=== PATIENT | female | born 1985 | race Caucasian/White ===

== ENCOUNTER 2016-09-14 21:52 | Emergency (ER) | payer OTHER ==
[~2016-09-14] VITALS: Ht 157.5 cm; Wt 49.0 kg
[~2016-09-14 21:52] MED LIST: CYCL1TAB29 PO; FLUT1SPR9; NAPR500 PO; RANI150 PO
[2016-09-14 21:54] VITALS: BP 112/57; PULSE 97; RESP 16; TEMP 97.8; O2SAT 96
[2016-09-14] MEDS ORDERED: BACT800T5 PO (22:18)
[2016-09-14] MEDS ORDERED: CEPH-460 PO (22:18)
--- NOTE | 2016-09-14 22:21 | PD ---
HPI Chief Complaint: Skin Problem Time Seen by Provider: 22:10 Travel History International Travel<30 days: No Contact w/Intl Traveler<30days: No Traveled to known affect area: No History of Present Illness HPI This is a 31-year-old female presents for evaluation of a skin infection on the posterior aspect of the right thigh. She first noticed an area of redness and tenderness 4 days ago. The area has gradually enlarged which prompted evaluation. The area is tender, aching, worse with palpation or sitting. Interventions that she has tried his home include warm compresses. Denies fevers or chills. Denies IV drug use. Denies any immunocompromising diseases. She has no other complaints at this time. [facility] Past Medical History Anxiety: Yes Diminished Hearing: No GERD: Yes Immunizations Current: No ?: Not LMP: 08/29/16 : 1 Para: 1 Miscarriage: 1 Past Surgical History Abdominal Surgery: Yes (C SECTION) Section: Yes (X 1) Social History Alcohol Use: Yes Tobacco Use: Yes (09/09 PPD) Substance Use: Yes (MARIJUANA EVERY DAY) Allergies-Medications (Allergen,Severity, Reaction): Coded Allergies: No Known Allergies (Verified , 09/14/16) Reported Meds & Prescriptions Reported Meds & Active Scripts Active No Active Prescriptions or Reported Medications Review of Systems Except as stated in HPI: all other systems reviewed are Neg Physical Exam Narrative GENERAL: Well-developed well-nourished female in no acute distress SKIN: Warm and dry. On the posterior aspect of the right thigh there is a 5-6 cm in diameter area of mild erythema. There is central induration, excoriation without fluctuance, drainage. CARDIOVASCULAR: Regular rate and rhythm. No murmur appreciated. RESPIRATORY: No accessory muscle use. Clear to auscultation. Breath sounds equal bilaterally. Data Data Last Documented VS Vital Signs Date Time Temp Pulse Resp B/P Pulse Ox O2 Delivery O2 Flow Rate FiO2 09/14/16 21:54 97.8 97 16 112/57 96 Room Air Orders Sulfamet-Trimeth Ds 800-160 Mg (Bactrim (09/14/16 22:30) Cephalexin (Keflex) (09/14/16 22:30) MDM Medical Decision Making Medical Screen Exam Complete: Yes Emergency Medical Condition: Yes Medical Record Reviewed: Yes Differential Diagnosis Cellulitis, localized allergic reaction, abscess, erysipelas Narrative Course 31-year-old female with cellulitis in the posterior right thigh. Symptoms are currently mild and will be treated as an outpatient. She understands to return for evidence of worsening infection such as increasing redness, swelling, fevers. She is being given Bactrim and Keflex, first dose here. Diagnosis Primary Impression: Cellulitis of right leg Additional Instructions: Medication as prescribed. Warm compresses several times a day 10 minutes at a time. Follow-up with primary care physician as needed. Return for any new or worsening symptoms. Med/Other Pt SpecificInfo: Prescription(s) given Scripts Cephalexin (Keflex)500 Mg Nub305 Mg PO Q6H 10 Days Ref 0 Prov:Karol Sandhu MD 09/14/16 Sulfamethoxazole-Trimethoprim (Bactrim DS)800-160 Mg Tab1 Tab PO BID #20 TAB Ref 0 Prov:Karol Sandhu MD 09/14/16 Disposition: 01 DISCHARGE HOME Condition: Stable Sandeep Xavier Sep 14, 2016 22:21
[2016-09-14] MEDS ORDERED: SULFAMETHOXAZOLE-TRIMETHOPRIM DS 800-160 MG TAB PO ONE (22:30)
[2016-09-14] MEDS ORDERED: CEPHALEXIN MONOHYDRATE 500 MG CAP PO ONE (22:30)
== END 2016-09-14 23:38 | disposition home or self-care (01) ==
LOC: NEPB 21:52
DX: L03.115 Cellulitis of right lower limb (principal); F17.210 Nicotine dependence, cigarettes, uncomplicated; F12.90 Cannabis use, unspecified, uncomplicated
CPT/HCPCS: 99282

== ENCOUNTER 2016-09-17 21:41 | Inpatient (IN) | payer OTHER ==
[~2016-09-17] VITALS: Ht 160 cm; Wt 49.6 kg
[~2016-09-17 21:41] MED LIST changes: +BACT800T5 PO; +CEPH-460 PO; -CYCL1TAB29 PO; -FLUT1SPR9; -NAPR500 PO; -RANI150 PO
[2016-09-17 21:45] VITALS: BP 108/64; PULSE 112; RESP 16; TEMP 99; O2SAT 98
[2016-09-17] MEDS ORDERED: VANCOMYCIN INJ 1,000 MG in SODIUM CHLOR 0.9% 250 ML INJ 250 ML IV ONE (22:30)
[2016-09-17] MEDS ORDERED: MORPHINE SULFATE 4 MG/ML INJ IV PUSH ONE (22:30)
[2016-09-17] MEDS ORDERED: SODIUM CHLOR 0.9% 1000 ML INJ 1,000 ML IV ONE (22:30)
[2016-09-17] MEDS ORDERED: AMPICILLIN-SULBACTAM INJ 1,500 MG in SODIUM CHLORIDE 0.9% INJ 100 ML IV ONE (22:45)
[2016-09-17 22:48] LABS: AUTOMATED NEUTROPHIL # 6.6 TH/MM3 (1.8-7.7); BASOPHIL # 0.6 TH/MM3 (0-0.2); BASOPHIL % 4.6 % (0.0-2.0); EOSINOPHIL # 1.7 TH/MM3 (0-0.4); EOSINOPHIL % 13.1 % (0.0-4.0); HEMATOCRIT 35.8 % (35.0-46.0); LYMPH % 21.4 % (9.0-44.0); LYMPHOCYTE # 2.8 TH/MM3 (1.0-4.8); MEAN CELL VOLUME 89.6 FL (80.0-100.0); MEAN CORPUSCULAR HEMOGLOBIN 29.9 PG (27.0-34.0); MEAN CORPUSCULAR HGB CONC 33.3 % (32.0-36.0); NEUT % 51.9 % (16.0-70.0); PLATELET COUNT 301 TH/MM3 (150-450); RED BLOOD COUNT 3.99 MIL/MM3 (4.00-5.30); RED CELL DISTRIBUTION WIDTH 12.5 % (11.6-17.2); WHITE BLOOD COUNT 12.9 TH/MM3 (4.0-11.0)
[2016-09-17] MEDS ORDERED: IOHEXOL 300 MG/ML 100 ML BTL (for Rad CT) IV ONE (22:52)
[2016-09-17 22:53] LABS: HEMO FLAGS DIFF FINAL
--- NOTE | 2016-09-17 23:07 | PD ---
HPI Chief Complaint: Skin Problem Time Seen by Provider: 21:57 Travel History International Travel<30 days: No Contact w/Intl Traveler<30days: No Traveled to known affect area: No History of Present Illness HPI Patient is a 31-year-old female who comes in complaining of pain and swelling to her right leg. She was seen here in September 14 was diagnosed with cellulitis , and discharged with prescriptions for Keflex and Bactrim. She has been taking the medications since that visit, but feels that the area of cellulitis seems to be getting worse. She said it started about a week ago with what she thought was a boil. She says she believes she had some sort insect bite while she was sleeping. She says that day the boil opened and drained, and she thought it would go away. However she has had increased pain and redness to the area. She denies fevers, but says she has generally been feeling more tired and unwell. PFSH Past Medical History Anxiety: Yes Diminished Hearing: No GERD: Yes Immunizations Current: No Tetanus Vaccination: < 5 Years Influenza Vaccination: No ?: Not LMP: 2-3 weeks ago : 1 Para: 1 Miscarriage: 1 Past Surgical History Abdominal Surgery: Yes (C SECTION) Section: Yes (X 1) Social History Alcohol Use: Yes Tobacco Use: Yes (1/2 PPD) Substance Use: Yes (MARIJUANA EVERY DAY) Allergies-Medications (Allergen,Severity, Reaction): Coded Allergies: No Known Allergies (Verified , 09/17/16) Reported Meds & Prescriptions Reported Meds & Active Scripts Active Keflex (Cephalexin) 500 Mg Cap 500 Mg PO Q6H 10 Days Bactrim DS (Sulfamethoxazole-Trimethoprim) 800-160 Mg Tab 1 Tab PO BID Review of Systems Except as stated in HPI: all other systems reviewed are Neg General / Constitutional: No: Fever HENT: No: Headaches, Lightheadedness Cardiovascular: No: Chest Pain or Discomfort Respiratory: No: Shortness of Breath Gastrointestinal: No: Nausea, Vomiting Musculoskeletal: Positive: Edema, Pain Skin: Positive Change in Pigmentation, Positive Lesions Neurologic: No: Weakness, Dizziness Physical Exam Narrative GENERAL: Awake and alert in no acute distress. SKIN: Warm and dry. 10 cm area of erythema and warmth to the posterior right thigh. Area of induration in the middle, no fluctuance palpated. HEAD: Atraumatic. Normocephalic. EYES: Pupils equal and round. No scleral icterus. ENT: Mucous membranes pink and moist. NECK: Trachea midline. No JVD. CARDIOVASCULAR: Regular rate and rhythm. No murmur appreciated. RESPIRATORY: No accessory muscle use. Clear to auscultation. Breath sounds equal bilaterally. MUSCULOSKELETAL: No obvious deformities. No clubbing. No cyanosis. No edema. NEUROLOGICAL: Awake and alert. No obvious cranial nerve deficits. Motor grossly within normal limits. Normal speech. PSYCHIATRIC: Appropriate mood and affect; insight and judgment normal. Data Data Last Documented VS Vital Signs Date Time Temp Pulse Resp B/P Pulse Ox O2 Delivery O2 Flow Rate FiO2 09/17/16 22:23 20 09/17/16 21:45 99.0 112 108/64 98 Orders Complete Blood Count With Diff (09/17/16 22:22) Comprehensive Metabolic Panel (09/17/16 22:22) Lactic Acid (09/17/16 22:22) Ct Femur W Iv Contrast (09/17/16 ) Vancomycin Inj (Vancomycin Inj) (09/17/16 22:30) Sodium Chlor 0.9% 1000 Ml Inj (Ns 1000 M (09/17/16 22:30) Morphine Inj (Morphine Inj) (09/17/16 22:30) Ampicillin-Sulbactam Inj (Unasyn Inj) (09/17/16 22:45) Iohexol 300 Inj (Rad Ct) (Omnipaque 300 (09/17/16 22:52) Labs Laboratory Tests Test 09/17/16 22:40 White Blood Count 12.9 TH/MM3 Red Blood Count 3.99 MIL/MM3 Hemoglobin 11.9 GM/DL Hematocrit 35.8 % Mean Corpuscular Volume 89.6 FL Mean Corpuscular Hemoglobin 29.9 PG Mean Corpuscular Hemoglobin 33.3 % Concent Red Cell Distribution Width 12.5 % Platelet Count 301 TH/MM3 Mean Platelet Volume 7.0 FL Neutrophils (%) (Auto) 51.9 % Lymphocytes (%) (Auto) 21.4 % Monocytes (%) (Auto) 9.0 % Eosinophils (%) (Auto) 13.1 % Basophils (%) (Auto) 4.6 % Neutrophils # (Auto) 6.6 TH/MM3 Lymphocytes # (Auto) 2.8 TH/MM3 Monocytes # (Auto) 1.2 TH/MM3 Eosinophils # (Auto) 1.7 TH/MM3 Basophils # (Auto) 0.6 TH/MM3 CBC Comment DIFF FINAL Differential Comment Sodium Level 137 MEQ/L Potassium Level 3.8 MEQ/L Chloride Level 103 MEQ/L Carbon Dioxide Level 26.2 MEQ/L Anion Gap 8 MEQ/L Blood Urea Nitrogen 13 MG/DL Creatinine 0.86 MG/DL Estimat Glomerular Filtration 76 ML/MIN Rate Random Glucose 97 MG/DL Lactic Acid Level 1.4 mmol/L Calcium Level 8.2 MG/DL Total Bilirubin 0.2 MG/DL Aspartate Amino Transf 12 U/L (AST/SGOT) Alanine Aminotransferase 9 U/L (ALT/SGPT) Alkaline Phosphatase 67 U/L Total Protein 7.8 GM/DL Albumin 3.1 GM/DL [facility] Medical Decision Making Medical Screen Exam Complete: Yes Emergency Medical Condition: Yes Medical Record Reviewed: Yes Differential Diagnosis Cellulitis versus abscess versus neckties and fasciitis versus brown recluse bite Narrative Course Patient is a 31-year-old female who comes in complaining of worsening area of redness and pain to her right leg. Exam shows large area of erythema and warmth with induration at the center. Patient has been on Keflex and Bactrim, but her symptoms seem to be worsening. IV established, labs sent. Labs concerning for a white blood cell count of 12.9. Patient given vancomycin and Unasyn. Given morphine for pain. CT of the leg performed show cellulitis, no defined abscess, no evidence of necrotizing fasciitis. Patient seems to have gotten worse while on antibiotics by mouth. I believe she would benefit from admission for IV antibiotics. Diagnosis Primary Impression: Cellulitis of right leg Admitting Information Admitting Physician Requests: Admit Condition: Stable Debbie Shepherd MD Sep 17, 2016 23:07
[2016-09-17 23:09] LABS: CHLORIDE 103 MEQ/L (98-107); POTASSIUM 3.8 MEQ/L (3.5-5.1); SODIUM (NA) 137 MEQ/L (136-145)
[2016-09-17 23:13] LABS: ANION GAP 8 MEQ/L (5-15); BICARBONATE 26.2 MEQ/L (21.0-32.0); BLOOD UREA NITROGEN 13 MG/DL (7-18)
--- NOTE | 2016-09-17 23:14 | RADHPO ---
EXAM DATE/TIME: 09/17/2016 22:44 [facility] COMPARISON: No previous studies available for comparison. INDICATIONS : Cellulitis. Evaluate for necrotizing fascitis. IV CONTRAST: 100 cc Omnipaque 300 (iohexol) IV RADIATION DOSE: 13.44 CTDIvol (mGy) MEDICAL HISTORY : None SURGICAL HISTORY : section. ENCOUNTER: Initial ACUITY: 4 - 6 days PAIN SCALE: 8/10 LOCATION: Right posterior femur. TECHNIQUE: Volumetric scanning of the femur was performed. Using automated exposure control and adjustment of t he mA and/or kV according to patient size, radiation dose was kept as low as reasonably achievable to obtain optimal diagnostic quality images. FINDINGS: BONES: No evidence of fracture. Alignment is within normal limits. JOINTS: No evidence of joint narrowing or effusion. SOFT TISSUES: Muscles, tendons and neurovascular structures unremarkable. No evidence of mass, organized fluid nicolette ection, or foreign body. There is some induration of the soft tissues of the posterior thigh laterall y consistent with cellulitis. No abscess. No emphysema to suggest necrotizing fasciitis. CONCLUSION: 1. Minimal cellulitic changes of the posterior lateral right thigh. 2. No emphysema to suggest necrotizing fasciitis. Naresh Bird MD on September 17, 2016 at 23:09 Board Certified Radiologist. This report was verified electronically.
[2016-09-17 23:16] LABS: ALT (GPT) 9 U/L (10-53); AST (GOT) 12 U/L (15-37); GLOMERULAR FILTRATION RATE 76 ML/MIN (>89)
[2016-09-17 23:18] LABS: TOTAL BILIRUBIN ADULT 0.2 MG/DL (0.2-1.0)
[2016-09-17 23:19] LABS: ALKALINE PHOSPHATASE 67 U/L (45-117)
[2016-09-17 23:24] VITALS: BP 100/53; PULSE 78; RESP 16; TEMP 98.4; O2SAT 97
[2016-09-17] MEDS ORDERED: SODIUM CHLORIDE 0.9% FLUSH 5 ML FLUSH FLUSH PRN (23:30)
[2016-09-17] MEDS ORDERED: NALOXONE HCL 0.4 MG/ML AMP IV PRN (23:30)
[2016-09-17] MEDS ORDERED: Vancomycin Consult Pharmacy 1 EA OTHER SCH (23:30)
[2016-09-18] VITALS (9 sets, daily range): BP systolic 93–108; BP diastolic 48–67; PULSE 65–81; RESP 17–20; TEMP 95.5–98.2; O2SAT 96–100
[2016-09-18] MEDS ORDERED: diphenhydrAMINE HCL 50 MG/ML VIAL IV PUSH ONE (01:45)
[2016-09-18] MEDS: KETOROLAC TROMETHAMINE 30 MG/ML (IVP) VIAL IV PUSH PRN ×3 (03:58→20:14)
[2016-09-18] MEDS ORDERED: diphenhydrAMINE HCL 25 MG CAP PO ONE (04:00)
[2016-09-18] MEDS ORDERED: PIPERACIL-TAZO 4.5 GM PREMIX 100 ML IV SCH (06:00)
[2016-09-18 06:23] LABS: AUTOMATED NEUTROPHIL # 5.3 TH/MM3 (1.8-7.7); BASOPHIL % 0.4 % (0.0-2.0); EOSINOPHIL # 1.3 TH/MM3 (0-0.4); EOSINOPHIL % 12.1 % (0.0-4.0); HEMO FLAGS DIFF FINAL; MEAN CELL VOLUME 88.8 FL (80.0-100.0); MEAN CORPUSCULAR HEMOGLOBIN 29.1 PG (27.0-34.0); MEAN CORPUSCULAR HGB CONC 32.8 % (32.0-36.0); MONO % 10.6 % (0.0-8.0); NEUT % 48.9 % (16.0-70.0); PLATELET COUNT 279 TH/MM3 (150-450); RED BLOOD COUNT 3.83 MIL/MM3 (4.00-5.30); RED CELL DISTRIBUTION WIDTH 12.3 % (11.6-17.2); WHITE BLOOD COUNT 10.7 TH/MM3 (4.0-11.0)
[2016-09-18 06:37] LABS: BICARBONATE 25.2 MEQ/L (21.0-32.0)
[2016-09-18] MEDS: SODIUM CHLORIDE 0.9% FLUSH 5 ML FLUSH FLUSH SCH ×2 (10:18→20:13)
--- NOTE | 2016-09-18 11:54 | HHI.HP ---
[facility] No Primary Care Physician Admission Diagnosis Cellulitis Diagnoses: Chief Complaint: Right thigh pain Travel History International Travel<30 Days: No Contact w/Intl Traveler <30 Da: No Traveled to Known Affected Are: No History of Present Illness Patient is a 31-year-old female with no chronic medical problems of did have increased redness and tenderness in the right thigh since 09/10/2016. She thinks that bug bit her. The patient did come to the emergency room for evaluation was given oral antibiotics which she took but noted that the pain became increased and the erythema and swelling became increased and she came back to the hospital. She does not IV drug use and any illicit behaviors. Patient has been admitted to the hospital due to failed outpatient therapy. She does have some leukocytosis and evidence of severe cellulitis on her right thigh. Review of Systems Constitutional: DENIES: Diaphoretic episodes, Fatigue, Fever, Weight gain, Weight loss, Chills, Dizziness, Change in appetite, Night Sweats Endocrine: DENIES: Abnorml menstrual pattern, Heat/cold intolerance, Polydipsia , Polyuria, Polyphagia Eyes: DENIES: Blurred vision, Diplopia, Eye inflammation, Eye pain, Vision loss , Photosensitivity, Double Vision Ears, nose, mouth, throat: DENIES: Tinnitus, Hearing loss, Vertigo, Nasal discharge, Oral lesions, Throat pain, Hoarseness, Ear Pain, Running Nose, Epistaxis, Sinus Pain, Toothache, Odynophagia Respiratory: DENIES: Apneas, Cough, Snoring, Wheezing, Hemoptysis, Sputum production, Shortness of breath Cardiovascular: DENIES: Chest pain, Palpitations, Syncope, Dyspnea on Exertion , PND, Lower Extremity Edema, Orthopnea, Claudication Gastrointestinal: DENIES: Abdominal pain, Black stools, Bloody stools, Constipation, Diarrhea, Nausea, Vomiting, Difficulty Swallowing, Anorexia Genitourinary: DENIES: Abnormal vaginal bleeding, Dysmenorrhea, Dyspareunia, Sexual dysfunction, Urinary frequency, Urinary incontinence, Urgency, Hematuria , Dysuria, Nocturia, Vaginal discharge Musculoskeletal: DENIES: Joint pain, Muscle aches, Stiffness, Joint Swelling, Back pain, Neck pain Integumentary: DENIES: Abnormal pigmentation, Pruritus, Rash, Nail changes, Breast masses, Breast skin changes, Nipple discharge Hematologic/lymphatic: DENIES: Bruising, Lymphadenopathy Immunologic/allergic: DENIES: Eczema, Urticaria Neurologic: DENIES: Abnormal gait, Headache, Localized weakness, Paresthesias, Seizures, Speech Problems, Tremor, Poor Balance Psychiatric: DENIES: Anxiety, Confusion, Mood changes, Depression, Hallucinations, Agitation, Suicidal Ideation, Homicidal Ideation, Delusions Past Family Social History Past Medical History Denies Past Surgical History Reported Medications Reviewed medical record Allergies: Coded Allergies: No Known Allergies (Verified , 09/17/16) Active Ordered Medications Reviewed and the medical record Family History Family history of COPD the patient is estranged from her family Social History Patient smokes a half pack a day, no alcohol Physical Exam Vital Signs Vital Signs Date Time Temp Pulse Resp B/P Pulse Ox O2 Delivery O2 Flow Rate FiO2 09/18/16 08:10 96.3 70 18 93/60 99 09/18/16 07:48 98.2 85 14 93/54 100 09/18/16 06:15 97.7 65 18 102/55 98 Room Air 09/18/16 03:34 78 20 102/50 100 09/18/16 01:45 77 18 101/50 99 Room Air 09/18/16 00:30 97.6 70 18 108/48 98 Room Air 09/17/16 23:45 18 09/17/16 23:39 18 09/17/16 23:24 98.4 78 16 100/53 97 Room Air 09/17/16 22:23 20 09/17/16 21:45 99.0 112 16 108/64 98 Physical Exam GENERAL: This is a well-nourished, well-developed patient, in no apparent distress. SKIN: Right thigh has erythema surrounding a central area of pus and minimal necrosis, tender HEAD: Atraumatic. Normocephalic. No temporal or scalp tenderness. EYES: Pupils equal round and reactive. Extraocular motions intact. No scleral icterus. No injection or drainage. ENT: Nose without bleeding, purulent drainage or septal hematoma. Throat without erythema, tonsillar hypertrophy or exudate. Uvula midline. Airway patent. NECK: Trachea midline. No JVD or lymphadenopathy. Supple, nontender, no meningeal signs. CARDIOVASCULAR: Regular rate and rhythm without murmurs, gallops, or rubs. RESPIRATORY: Clear to auscultation. Breath sounds equal bilaterally. No wheezes , rales, or rhonchi. GASTROINTESTINAL: Abdomen soft, non-tender, nondistended. No hepato-splenomegaly , or palpable masses. No guarding. MUSCULOSKELETAL: Extremities without clubbing, cyanosis, or edema. No joint tenderness, effusion, or edema noted. No calf tenderness. Negative Homans sign bilaterally. NEUROLOGICAL: Awake and alert. Cranial nerves II through XII intact. Motor and sensory grossly within normal limits. Five out of 5 muscle strength in all muscle groups. Normal speech. Laboratory Laboratory Tests Test 09/17/16 09/18/16 22:40 06:10 White Blood Count 12.9 10.7 Red Blood Count 3.99 3.83 Hemoglobin 11.9 11.2 Hematocrit 35.8 34.0 Mean Corpuscular Volume 89.6 88.8 Mean Corpuscular Hemoglobin 29.9 29.1 Mean Corpuscular Hemoglobin 33.3 32.8 Concent Red Cell Distribution Width 12.5 12.3 Platelet Count 301 279 Mean Platelet Volume 7.0 7.3 Neutrophils (%) (Auto) 51.9 48.9 Lymphocytes (%) (Auto) 21.4 28.0 Monocytes (%) (Auto) 9.0 10.6 Eosinophils (%) (Auto) 13.1 12.1 Basophils (%) (Auto) 4.6 0.4 Neutrophils # (Auto) 6.6 5.3 Lymphocytes # (Auto) 2.8 3.0 Monocytes # (Auto) 1.2 1.1 Eosinophils # (Auto) 1.7 1.3 Basophils # (Auto) 0.6 0.0 CBC Comment DIFF FINAL DIFF FINAL Differential Comment Sodium Level 137 141 Potassium Level 3.8 4.0 Chloride Level 103 107 Carbon Dioxide Level 26.2 25.2 Anion Gap 8 9 Blood Urea Nitrogen 13 14 Creatinine 0.86 0.79 Estimat Glomerular Filtration 76 84 Rate Random Glucose 97 99 Lactic Acid Level 1.4 Calcium Level 8.2 7.9 Total Bilirubin 0.2 Aspartate Amino Transf 12 (AST/SGOT) Alanine Aminotransferase 9 (ALT/SGPT) Alkaline Phosphatase 67 Total Protein 7.8 Albumin 3.1 Result Diagram: 09/18/16 0610 09/18/16 0610 Imaging Last Impressions Lower Extremity CT 09/17/16 0000 Signed Impressions: Service Date/Time: Saturday, September 17, 2016 22:44 - CONCLUSION: 1. Minimal cellulitic changes of the posterior lateral right thigh. 2. No emphysema to suggest necrotizing fasciitis. Naresh Bird MD Assessment and Plan Problem List: (1) Cellulitis of right leg ICD Code: L03.115 Status: Acute Plan: Continue IV Zosyn and vancomycin for now. Follow up in progress Discussed Condition With Patient Physician Certification 2 Midnight Certification Type: Admission for Inpatient Services Order for Inpatient Services The services are ordered in accordance with Medicare regulations or non- Medicare payer requirements, as applicable. In the case of services not specified as inpatient-only, they are appropriately provided as inpatient services in accordance with the 2-midnight benchmark. Estimated LOS (days): 3 days is the estimated time the patient will need to remain in the hospital, assuming treatment plan goals are met and no additional complications. Post-Hospital Plan: Nancy Aceves MD Sep 18, 2016 11:53
[2016-09-18] MEDS: NICOTINE 14 MG/24 HR PATCH TD SCH (12:07)
[2016-09-18] MEDS: PIPERACIL-TAZO 4.5 GM PREMIX 100 ML IV SCH ×2 (14:00→20:13)
[2016-09-18] MEDS: VANCOMYCIN 1,000 MG/NS 250 ML IV SCH ×2 (18:07)
[2016-09-19] VITALS: BP 114/67; PULSE 77; RESP 18; TEMP 97.2; O2SAT 100
[2016-09-19] MEDS: PIPERACIL-TAZO 4.5 GM PREMIX 100 ML IV SCH ×2 (02:25→08:21)
[2016-09-19] MEDS: KETOROLAC TROMETHAMINE 30 MG/ML (IVP) VIAL IV PUSH PRN ×2 (02:25→14:28)
[2016-09-19 08:00] VITALS: BP 107/68; PULSE 63; RESP 16; TEMP 96.9; O2SAT 99
[2016-09-19] MEDS: SODIUM CHLORIDE 0.9% FLUSH 5 ML FLUSH FLUSH SCH (08:22)
[2016-09-19] MEDS: NICOTINE 14 MG/24 HR PATCH TD SCH (08:22)
[2016-09-19] MEDS ORDERED: REMOVE OLD NICODERM (NICOTINE) PATCH TD SCH (09:00)
--- NOTE | 2016-09-19 10:03 | HHI.DCPOC ---
Discharge Care Plan Diagnosis: (1) Cellulitis of right leg Goals to Promote Your Health * To prevent worsening of your condition and complications * To maintain your health at the optimal level Directions to Meet Your Goals Take your medications as prescribed Follow your dietary instruction Follow activity as directed Keep your appointments as scheduled Take your immunizations and boosters as scheduled If your symptoms worsen call your PCP, if no PCP go to Urgent Care Center or Emergency Room Smoking is Dangerous to Your Health. Avoid second hand smoke Call the 24-hour hour crisis hotline for domestic abuse at Nancy Locke MD Sep 19, 2016 10:03
[2016-09-19] MEDS ORDERED: CLIN1CAP6 PO (10:04)
--- NOTE | 2016-09-19 10:05 | HHI.DS ---
Discharge Summary Admission Date Sep 17, 2016 at 23:30 Discharge Date: Sep 19, 2016 Admitting Diagnosis Cellulitis (1) Cellulitis of right leg ICD Code: L03.115 Procedures none Brief History - From Admission Patient is a 31-year-old female with no chronic medical problems of did have increased redness and tenderness in the right thigh since 09/10/2016. She thinks that bug bit her. The patient did come to the emergency room for evaluation was given oral antibiotics which she took but noted that the pain became increased and the erythema and swelling became increased and she came back to the hospital. She does not IV drug use and any illicit behaviors. Patient has been admitted to the hospital due to failed outpatient therapy. She does have some leukocytosis and evidence of severe cellulitis on her right thigh. CBC/BMP: 09/18/16 0610 09/18/16 0610 Significant Findings Laboratory Tests Test 09/17/16 09/18/16 22:40 06:10 White Blood Count 12.9 TH/MM3 (4.0-11.0) Red Blood Count 3.99 MIL/MM3 3.83 MIL/MM3 (4.00-5.30) (4.00-5.30) Monocytes (%) (Auto) 9.0 % (0.0-8.0) 10.6 % (0.0-8.0) Eosinophils (%) (Auto) 13.1 % 12.1 % (0.0-4.0) (0.0-4.0) Basophils (%) (Auto) 4.6 % (0.0-2.0) Monocytes # (Auto) 1.2 TH/MM3 1.1 TH/MM3 (0-0.9) (0-0.9) Eosinophils # (Auto) 1.7 TH/MM3 1.3 TH/MM3 (0-0.4) (0-0.4) Basophils # (Auto) 0.6 TH/MM3 (0-0.2) Estimat Glomerular Filtration 76 ML/MIN (>89) 84 ML/MIN (>89) Rate Calcium Level 8.2 MG/DL 7.9 MG/DL (8.5-10.1) (8.5-10.1) Aspartate Amino Transf 12 U/L (15-37) (AST/SGOT) Alanine Aminotransferase 9 U/L (10-53) (ALT/SGPT) Albumin 3.1 GM/DL (3.4-5.0) Hemoglobin 11.2 GM/DL (11.6-15.3) Hematocrit 34.0 % (35.0-46.0) Imaging Last Impressions Lower Extremity CT 09/17/16 0000 Signed Impressions: Service Date/Time: Saturday, September 17, 2016 22:44 - CONCLUSION: 1. Minimal cellulitic changes of the posterior lateral right thigh. 2. No emphysema to suggest necrotizing fasciitis. Naresh Bird MD PE at Discharge GENERAL: This is a well-nourished, well-developed patient, in no apparent distress. CARDIOVASCULAR: Regular rate and rhythm without murmurs, gallops, or rubs. RESPIRATORY: Clear to auscultation. Breath sounds equal bilaterally. No wheezes , rales, or rhonchi. GASTROINTESTINAL: Abdomen soft, non-tender, nondistended. Normal active bowel sounds MUSCULOSKELETAL: Improved erythema and edema and the cellulitic area, other 3 Extremities without clubbing, cyanosis, or edema. NEURO: Alert & Oriented x4 to person, place, time, situation. Moves all ext x4 Hospital Course Patient was seen and treated for failure of IV antibiotics to treat her cellulitis. She was given vancomycin and Zosyn in the hospital and her stabilize improved greatly. Patient was discharged home to continue with oral antibiotics Pt Condition on Discharge: Good Discharge Disposition: Discharge Home Discharge Time: > 30 minutes Discharge Instructions DIET: Follow Instructions for: As Tolerated, No Restrictions Speech Therapy-Diet Recommends: Regular Activities you can perform: Regular-No Restrictions New Medications: Clindamycin (Clindamycin) 300 Mg Cap 300 MG PO TID Infection #21 Ref 0 Nancy Barnett MD Sep 19, 2016 10:05
[2016-09-19] MEDS: VANCOMYCIN 1,000 MG/NS 250 ML IV SCH ×2 (11:28)
[2016-09-19 12:00] VITALS: BP 99/55; PULSE 65; RESP 16; TEMP 97.6; O2SAT 100
[2016-09-20] MEDS ORDERED: PHARMACY ORDERED LAB XX ONE (05:45)
== END 2016-09-19 15:00 | disposition home or self-care (01) | DRG 603 ==
LOC: PHEFT 21:41 → PHEDA 23:30 → PH3A 09-18 07:58
PROVIDERS: ADMIT Hospitalist; ATTEND Hospitalist
DX: L03.115 Cellulitis of right lower limb (principal); F17.210 Nicotine dependence, cigarettes, uncomplicated
CPT/HCPCS: 73701; 80048; 80053; 83605; 85025; 96374; 96375; J0295; J1200; J1885; J2270; J2543; J3370; J7030; J7050; Q9967

== ENCOUNTER 2016-10-07 23:37 | Inpatient (IN) | payer OTHER ==
[~2016-10-07] VITALS: Ht 157.5 cm; Wt 53.8 kg
[~2016-10-07 23:37] MED LIST changes: -BACT800T5 PO; -CEPH-460 PO; +CLIN1CAP6 PO
[2016-10-07 23:38] VITALS: BP 101/65; PULSE 88; RESP 16; TEMP 97.4; O2SAT 97
[2016-10-08] VITALS (10 sets, daily range): BP systolic 85–129; BP diastolic 52–71; PULSE 62–83; RESP 16–22; TEMP 95.9–97; O2SAT 95–100
--- NOTE | 2016-10-08 00:21 | PD ---
HPI Chief Complaint: Cold / Flu Symptoms Time Seen by Provider: 00:17 Travel History International Travel<30 days: No Contact w/Intl Traveler<30days: No Traveled to known affect area: No History of Present Illness HPI 31-year-old white female presents to emergency Department with complaints of right posterior chest pain associated with cough. She states that she began coughing today. She has had some congestion, cough and pleuritic chest wall pain. The pain is worse when she takes a deep breath or coughs. Pain is moderate. She denies any shortness of breath or wheezing. No nausea vomiting. She does admit to feeling subjectively febrile. Positive general malaise. No abdominal pain or diarrhea. No dysuria or frequency. PFSH Past Medical History Narrative Medical Anxiety, GERD Anxiety: Yes Cardiovascular Problems: No Diminished Hearing: No GERD: Yes Genitourinary: No Hiatal Hernia: No Musculoskeletal: No Neurologic: No Reproductive: No Respiratory: No Immunizations Current: No Ulcer: No ?: Not LMP: 2 WKS AGO : 1 Para: 1 Miscarriage: 1 Past Surgical History Abdominal Surgery: Yes (C SECTION) Cardiac Surgery: No Section: Yes (X 1) Ear Surgery: No Endocrine Surgery: No Eye Surgery: No Genitourinary Surgery: No Gynecologic Surgery: No Oral Surgery: No Thoracic Surgery: No Social History Alcohol Use: Yes Tobacco Use: Yes (1/2 PPD) Substance Use: Yes (MARIJUANA EVERY DAY) Allergies-Medications (Allergen,Severity, Reaction): Coded Allergies: No Known Allergies (Verified , 10/07/16) Reported Meds & Prescriptions Reported Meds & Active Scripts Active Clindamycin (Clindamycin HCl) 300 Mg Cap 300 Mg PO TID Review of Systems Except as stated in HPI: all other systems reviewed are Neg Physical Exam Narrative GENERAL: Well-developed, well-nourished in no acute distress. Nontoxic appearing. HEAD: Normocephalic, atraumatic. EYES: Pupils equal round and reactive. Extraocular motions intact. No scleral icterus. No injection or drainage. ENT: TMs clear without erythema. The external auditory canals clear. Nose: clear . Posterior pharynx is pink and moist. No tonsillar edema or exudate. Uvula midline. Airway patent. NECK: Trachea midline.Supple, nontender, moves head freely. No central bony tenderness or spasm. CARDIOVASCULAR: Regular rate and rhythm without murmurs, gallops, or rubs. RESPIRATORY: Somewhat Decreased breath sounds on the right side. Left side breath sounds normal. GASTROINTESTINAL: Abdomen soft, non-tender, nondistended. No hepato-splenomegaly , or palpable masses. No guarding. EXTREMITIES: No clubbing, cyanosis, or edema. No joint tenderness, effusion, or edema noted. BACK: Nontender without deformity or crepitance. No flank tenderness. Data Data Last Documented VS Vital Signs Date Time Temp Pulse Resp B/P Pulse Ox O2 Delivery O2 Flow Rate FiO2 10/08/16 02:47 83 20 106/71 100 Nasal Cannula 2 10/07/16 23:38 97.4 Orders Chest, Pa & Lat (10/08/16 00:03) Complete Blood Count With Diff (10/08/16 00:40) Basic Metabolic Panel (Bmp) (10/08/16 00:40) Prothrombin Time / Inr (Pt) (10/08/16 00:40) Act Partial Throm Time (Ptt) (10/08/16 00:40) Influenzae A/B Antigen (10/08/16 00:40) Iv Access Insert/Monitor (10/08/16 00:40) Ecg Monitoring (10/08/16 00:40) Oxygen Administration (10/08/16 00:40) Oximetry (10/08/16 00:40) Ed Urine Pregnancytest Poc (10/08/16 00:40) Morphine Inj (Morphine Inj) (10/08/16 00:45) Lorazepam Inj (Ativan Inj) (10/08/16 00:45) Sodium Chlor 0.9% 1000 Ml Inj (Ns 1000 M (10/08/16 01:15) Lidocaine 1% Inj (50 Ml) (Xylocaine 1% I (10/08/16 02:15) Chest, Single Ap (10/08/16 ) Admit Order (Ed Use Only) (10/08/16 02:54) Labs Laboratory Tests Test 10/08/16 00:55 White Blood Count 17.3 TH/MM3 Red Blood Count 4.16 MIL/MM3 Hemoglobin 13.1 GM/DL Hematocrit 36.6 % Mean Corpuscular Volume 87.8 FL Mean Corpuscular Hemoglobin 31.5 PG Mean Corpuscular Hemoglobin 35.9 % Concent Red Cell Distribution Width 13.3 % Platelet Count 347 TH/MM3 Mean Platelet Volume 7.2 FL Neutrophils (%) (Auto) 65.8 % Lymphocytes (%) (Auto) 20.9 % Monocytes (%) (Auto) 8.3 % Eosinophils (%) (Auto) 4.8 % Basophils (%) (Auto) 0.2 % Neutrophils # (Auto) 11.4 TH/MM3 Lymphocytes # (Auto) 3.6 TH/MM3 Monocytes # (Auto) 1.4 TH/MM3 Eosinophils # (Auto) 0.8 TH/MM3 Basophils # (Auto) 0.0 TH/MM3 CBC Comment DIFF FINAL Differential Comment Prothrombin Time 10.8 SEC Prothromb Time International 1.0 RATIO Ratio Activated Partial 25.2 SEC Thromboplast Time Sodium Level 139 MEQ/L Potassium Level 3.8 MEQ/L Chloride Level 103 MEQ/L Carbon Dioxide Level 29.5 MEQ/L Anion Gap 7 MEQ/L Blood Urea Nitrogen 12 MG/DL Creatinine 0.93 MG/DL Estimat Glomerular Filtration 69 ML/MIN Rate Random Glucose 99 MG/DL Calcium Level 8.9 MG/DL MDM Medical Decision Making Medical Screen Exam Complete: Yes Emergency Medical Condition: Yes Medical Record Reviewed: Yes Interpretation(s) Chest x-ray: Near complete right pneumothorax Postprocedural chest x-ray shows near complete resolution of the pneumothorax. The catheter is in good place. Basilar atelectasis. Influenza: Negative CBC & BMP Diagram 10/08/16 00:55 Differential Diagnosis MDM: High Differential diagnoses: Pneumonia, bronchitis, URI, asthma, RAD, pleurisy, pneumothorax Narrative Course Patient's x-ray reveals 100% right pneumothorax. Procedures Procedure Narrative A timeout is called. Nursing at bedside. Patient is on a machine deicer element winder. Nasal cannula O2. IV. CHEST TUBE THORACOSTOMY: The patient is given 6 mg of morphine IV and 1 mg of Ativan IV for procedural anxiolysis and pain control. The right chest was prepped with Betadine and sterilely draped. The area of the fifth intercostal interspace was infiltrated with 1% lidocaine plain. A 0.8 centimeter incision was made with a scalpel at the fourth intercostal space. Using a pigtail catheter chest tube with stylette is inserted. The stylette is removed after entering the chest wall cavity. The pigtail catheter is advanced into the chest wall. The catheter is then connected to pleural vac Tube draining well. The thoracostomy tube was secured with the new chest tube secured dressing. Patient tolerated procedure well. Postprocedural x-ray is been ordered. Physician Communication Physician Communication The case has been discussed with Dr. BROWER who has accepted the patient. Diagnosis Primary Impression: Pneumothorax, right Admitting Information Admitting Physician Requests: Admit Condition: Stable Negro Saldana Oct 08, 2016 00:21
[2016-10-08] MEDS ORDERED: ALBU6.7H INH (00:24)
[2016-10-08] MEDS ORDERED: PRED-503 PO (00:24)
--- NOTE | 2016-10-08 00:42 | RADRPT ---
EXAM DATE/TIME: 10/08/2016 00:23 [facility] COMPARISON: RIBS LEFT(W PA CXR MIN 3VWS), August 13, 2016, 20:32. INDICATIONS : Cough and right side pain. MEDICAL HISTORY : None. SURGICAL HISTORY : None. ENCOUNTER: Initial ACUITY: 1 day PAIN SCORE: 7/10 LOCATION: Right chest FINDINGS: There is a large right pneumothorax. There is mild mediastinal shift to the left. Left lung is clear. CONCLUSION: Large right pneumothorax with mild tension. Clear left lung. Report called to Dr. Brown in the emergen cy department. Jose Antonio Chavez MD on October 08, 2016 at 0:38 Board Certified Radiologist. This report was verified electronically.
[2016-10-08] MEDS ORDERED: LORazepam 2 MG/ML VIAL IV PUSH ONE (00:45)
[2016-10-08] MEDS ORDERED: MORPHINE SULFATE 8 MG/ML INJ IV PUSH ONE (00:45)
[2016-10-08 01:25] LABS: AUTOMATED NEUTROPHIL # 11.4 TH/MM3 (1.8-7.7); BASOPHIL % 0.2 % (0.0-2.0); EOSINOPHIL # 0.8 TH/MM3 (0-0.4); EOSINOPHIL % 4.8 % (0.0-4.0); HEMATOCRIT 36.6 % (35.0-46.0); HEMO FLAGS DIFF FINAL; LYMPH % 20.9 % (9.0-44.0); LYMPHOCYTE # 3.6 TH/MM3 (1.0-4.8); MEAN CELL VOLUME 87.8 FL (80.0-100.0); MEAN CORPUSCULAR HEMOGLOBIN 31.5 PG (27.0-34.0); MEAN CORPUSCULAR HGB CONC 35.9 % (32.0-36.0); MONO % 8.3 % (0.0-8.0); NEUT % 65.8 % (16.0-70.0); PLATELET COUNT 347 TH/MM3 (150-450); RED BLOOD COUNT 4.16 MIL/MM3 (4.00-5.30); RED CELL DISTRIBUTION WIDTH 13.3 % (11.6-17.2); WHITE BLOOD COUNT 17.3 TH/MM3 (4.0-11.0)
[2016-10-08 01:35] LABS: APTT (PATIENT) 25.2 SEC (24.3-30.1); PROTHROMBIN TIME - PATIENT 10.8 SEC (9.8-11.6)
[2016-10-08 01:53] LABS: BICARBONATE 29.5 MEQ/L (21.0-32.0); POTASSIUM 3.8 MEQ/L (3.5-5.1)
[2016-10-08] MEDS ORDERED: LIDOCAINE HCL 1% 50 ML VIAL INFIL ONE (02:15)
[2016-10-08] MEDS: SODIUM CHLOR 0.9% 1000 ML INJ 1,000 ML IV SCH ×2 (02:19→09:15)
[2016-10-08] MEDS ORDERED: NALOXONE HCL 0.4 MG/ML AMP IV PRN (03:15)
[2016-10-08] MEDS ORDERED: SODIUM CHLORIDE 0.9% FLUSH 5 ML FLUSH FLUSH PRN (03:15)
--- NOTE | 2016-10-08 03:16 | RADRPT ---
EXAM DATE/TIME: 10/08/2016 02:47 [facility] COMPARISON: No previous studies available for comparison. INDICATIONS : Post right chest tube placement. MEDICAL HISTORY : None. SURGICAL HISTORY : None. ENCOUNTER: Subsequent ACUITY: 1 day PAIN SCORE: 10/10 LOCATION: Right chest FINDINGS: Small caliber chest tube has been placed on the right. The pneumothorax has almost completely resolve d, just a tiny residual component. Tension has resolved. There is mild atelectasis of the right lung base. Heart size stable, within normal limits. CONCLUSION: Small caliber right chest tube now present and near complete resolution of the previously seen large right pneumothorax. Mild atelectasis seen of the right lung base. Jose Antonio Chavez MD on October 08, 2016 at 3:14 Board Certified Radiologist. This report was verified electronically.
[2016-10-08] MEDS: ACETAMINOPHEN/HYDROcodone 325 MG/5 MG TAB PO PRN ×3 (03:40→16:50)
--- NOTE | 2016-10-08 04:42 | PD ---
Physical Exam Narrative General: The patient is a well-developed well-nourished female in no acute distress. Head and Neck exam: Head is normocephalic atraumatic. Eyes: Pupils are equal round and reactive to light. Cardiovascular: Regular rate and rhythm without murmurs, gallops, or rubs. Lungs: Clear to auscultation on the left, decreased breath sounds on the right. No rhonchi, no crackles, no wheezes. Abdomen: Soft, without tenderness to palpation in all 4 quadrants of the abdomen. No guarding, rebound, or rigidity. Normal bowel sounds are audible. Extremities: No clubbing, cyanosis, or edema. Neurologic Exam: Grossly nonfocal. Skin Exam: No rash noted. Intact skin that is warm and dry. Data Data Last Documented VS Vital Signs Date Time Temp Pulse Resp B/P Pulse Ox O2 Delivery O2 Flow Rate FiO2 10/08/16 02:47 83 20 106/71 100 Nasal Cannula 2 10/07/16 23:38 97.4 Orders Chest, Pa & Lat (10/08/16 00:03) Complete Blood Count With Diff (10/08/16 00:40) Basic Metabolic Panel (Bmp) (10/08/16 00:40) Prothrombin Time / Inr (Pt) (10/08/16 00:40) Act Partial Throm Time (Ptt) (10/08/16 00:40) Influenzae A/B Antigen (10/08/16 00:40) Iv Access Insert/Monitor (10/08/16 00:40) Ecg Monitoring (10/08/16 00:40) Oxygen Administration (10/08/16 00:40) Oximetry (10/08/16 00:40) Ed Urine Pregnancytest Poc (10/08/16 00:40) Morphine Inj (Morphine Inj) (10/08/16 00:45) Lorazepam Inj (Ativan Inj) (10/08/16 00:45) Sodium Chlor 0.9% 1000 Ml Inj (Ns 1000 M (10/08/16 01:15) Lidocaine 1% Inj (50 Ml) (Xylocaine 1% I (10/08/16 02:15) Chest, Single Ap (10/08/16 ) Admit Order (Ed Use Only) (10/08/16 02:54) Labs Laboratory Tests Test 10/08/16 00:55 White Blood Count 17.3 TH/MM3 Red Blood Count 4.16 MIL/MM3 Hemoglobin 13.1 GM/DL Hematocrit 36.6 % Mean Corpuscular Volume 87.8 FL Mean Corpuscular Hemoglobin 31.5 PG Mean Corpuscular Hemoglobin 35.9 % Concent Red Cell Distribution Width 13.3 % Platelet Count 347 TH/MM3 Mean Platelet Volume 7.2 FL Neutrophils (%) (Auto) 65.8 % Lymphocytes (%) (Auto) 20.9 % Monocytes (%) (Auto) 8.3 % Eosinophils (%) (Auto) 4.8 % Basophils (%) (Auto) 0.2 % Neutrophils # (Auto) 11.4 TH/MM3 Lymphocytes # (Auto) 3.6 TH/MM3 Monocytes # (Auto) 1.4 TH/MM3 Eosinophils # (Auto) 0.8 TH/MM3 Basophils # (Auto) 0.0 TH/MM3 CBC Comment DIFF FINAL Differential Comment Prothrombin Time 10.8 SEC Prothromb Time International 1.0 RATIO Ratio Activated Partial 25.2 SEC Thromboplast Time Sodium Level 139 MEQ/L Potassium Level 3.8 MEQ/L Chloride Level 103 MEQ/L Carbon Dioxide Level 29.5 MEQ/L Anion Gap 7 MEQ/L Blood Urea Nitrogen 12 MG/DL Creatinine 0.93 MG/DL Estimat Glomerular Filtration 69 ML/MIN Rate Random Glucose 99 MG/DL Calcium Level 8.9 MG/DL [facility] Medical Record Reviewed: Yes Supervised Visit with FRANSISCA: Yes Interpretation(s) Last Impressions Chest X-Ray 10/08/16 0003 Signed Impressions: Service Date/Time: Saturday, October 08, 2016 00:23 - CONCLUSION: Large right pneumothorax with mild tension. Clear left lung. Report called to Dr. Brown in the emergency department. Jose Antonio Chavez MD Chest X-Ray 10/08/16 0000 Signed Impressions: Service Date/Time: Saturday, October 08, 2016 02:47 - CONCLUSION: Small caliber right chest tube now present and near complete resolution of the previously seen large right pneumothorax. Mild atelectasis seen of the right lung base. Jose Antonio Chavez MD Narrative Course I, Dr. Tan, have reviewed the advance practice practitioner's documentation and am in agreement, met with the patient face to face, made the diagnosis, and the medical decision making was done by me. The patient was initially evaluated by Negro Deutsch, the physician certified surgical tech/first assistant. Please see his complete history and physical. *My assessment and Findings: The patient is a 31-year-old female who presents to [facility] emergency Department with a history of cough and mild congestion with reportedly while driving having onset of right-sided sharp chest pain that radiated around to her back. The patient reports that she had sudden onset of shortness of breath with this. A workup ensued. A chest x-ray revealed that the patient had a large right-sided pneumothorax. The patient was moved over to a medical bed to be placed on a panel monitor for placement of a pigtail catheter to reexpand her pneumothorax. I was available at the bedside during this patient's procedure to assist Negro with it. The patient tolerated the procedure well. Chest x-ray post placement shows that the pneumothorax is reexpanded. The patient will be admitted to the hospital for continued evaluation and treatment. Diagnosis Primary Impression: Pneumothorax, right Admitting Information Admitting Physician Requests: Admit Additional Instruction: Rest. Increase fluids. Tylenol and Advil. Robitussin-DM. prednisone, and albuterol. Followup with your Dr. in one week. Return to the ER for any problems. Condition: Stable Alexia Tan MD Oct 08, 2016 04:42
[2016-10-08] MEDS: SODIUM CHLORIDE 0.9% FLUSH 5 ML FLUSH FLUSH SCH ×2 (09:03→21:59)
--- NOTE | 2016-10-08 09:58 | HHI.HP ---
[facility] Primary Care Physician No Primary Care Physician Admission Diagnosis right pneumothorax Diagnoses: Chief Complaint: Right sided chest pain Travel History International Travel<30 Days: No Contact w/Intl Traveler <30 Da: No Traveled to Known Affected Are: No History of Present Illness This is a 31-year-old female with no comorbidities other than she is a chronic smoker and marijuana user, who presented to the hospital with sudden right sided chest pain associated with severe shortness of breath which started with coughing earlier during the day. She denies any productive phlegm, fever, chills, nausea, vomiting or sore throat. At emergency department, she was found to have right sided pneumothorax with mild tension, a pigtail chest tube was inserted which resolved the pneumothorax. Presently, she only complains of mild pain at insertion site but otherwise no other complaints. Review of Systems ROS Limitations: Other (All other pertinent systems were reviewed and are negative.) Past Family Social History Past Medical History Tobacco abuse Marijuana user GERD Anxiety Past Surgical History section Reported Medications None Allergies: Coded Allergies: No Known Allergies (Verified , 10/07/16) Family History No history of diabetes, coronary artery disease or pneumothorax in the family. Social History No significant alcohol use, smokes about one half pack a day for the last 10 years, admits to using weed every day. Physical Exam Vital Signs Vital Signs Date Time Temp Pulse Resp B/P Pulse Ox O2 Delivery O2 Flow Rate FiO2 10/08/16 08:00 96.6 70 16 85/52 97 10/08/16 05:26 96.6 76 18 95/57 99 10/08/16 04:41 62 18 116/68 100 Room Air 10/08/16 03:47 77 18 106/60 100 Room Air 10/08/16 02:47 83 20 106/71 100 Nasal Cannula 2 10/08/16 01:55 69 22 129/71 100 Nasal Cannula 2 10/08/16 01:18 Nasal Cannula 2 10/08/16 00:45 2 10/08/16 00:15 Room Air 10/07/16 23:38 97.4 88 16 101/65 97 Room Air Physical Exam GENERAL: Not in acute distress, well-nourished. HEAD: Atraumatic. Normocephalic. No temporal or scalp tenderness. EYES: PERRL, full EOMs, no jaundice, nonicteric, pink conjunctivae without injection, moist mucosa ENT: Nose without bleeding, purulent drainage. Throat without erythema, tonsillar hypertrophy or exudate. Uvula midline. Airway patent. NECK: Trachea midline, no mass, no obvious thyromegaly. No JVD or lymphadenopathy. CARDIOVASCULAR: Regular rate and rhythm without murmurs, gallops, or rubs. RESPIRATORY: Clear to auscultation with normal respiratory effort. Chest tube in place. GASTROINTESTINAL: Abdomen soft, normal bowel sounds, non-tender, nondistended. No hepato-splenomegaly or palpable mass. No guarding. AZUL and exam deferred. MUSCULOSKELETAL: Extremities without clubbing, cyanosis, or edema. No joint tendernes. No calf tenderness. Distal pulses intact, 2+ bilaterally. INTEGUMENTARY: Warm and dry, no rash of generalized distribution. NEUROLOGICAL: Awake, alert, oriented 3. No obvious cranial nerve deficits. Moves all 4 extremities, muscle strength testing 5 over 5. Motor and sensory grossly within normal limits. .Supple neck, no meningeal signs. Grossly negative cerebellar examination. No focal neurologic deficits. PSYCHIATRIC: Normal mood, appropriate affect. Laboratory Laboratory Tests Test 10/08/16 00:55 White Blood Count 17.3 Red Blood Count 4.16 Hemoglobin 13.1 Hematocrit 36.6 Mean Corpuscular Volume 87.8 Mean Corpuscular Hemoglobin 31.5 Mean Corpuscular Hemoglobin 35.9 Concent Red Cell Distribution Width 13.3 Platelet Count 347 Mean Platelet Volume 7.2 Neutrophils (%) (Auto) 65.8 Lymphocytes (%) (Auto) 20.9 Monocytes (%) (Auto) 8.3 Eosinophils (%) (Auto) 4.8 Basophils (%) (Auto) 0.2 Neutrophils # (Auto) 11.4 Lymphocytes # (Auto) 3.6 Monocytes # (Auto) 1.4 Eosinophils # (Auto) 0.8 Basophils # (Auto) 0.0 CBC Comment DIFF FINAL Differential Comment Prothrombin Time 10.8 Prothromb Time International 1.0 Ratio Activated Partial 25.2 Thromboplast Time Sodium Level 139 Potassium Level 3.8 Chloride Level 103 Carbon Dioxide Level 29.5 Anion Gap 7 Blood Urea Nitrogen 12 Creatinine 0.93 Estimat Glomerular Filtration 69 Rate Random Glucose 99 Calcium Level 8.9 Date/Time Procedure Status Source Growth 10/08/16 00:59 Influenza Types A,B Antigen (RADHA) - Final Complete Nasal Aspirate NEGATIVE FOR FLU A AND B ANTIGEN.... Result Diagram: 10/08/16 0055 10/08/16 0055 Imaging Last Impressions Chest X-Ray 10/08/16 0003 Signed Impressions: Service Date/Time: Saturday, October 08, 2016 00:23 - CONCLUSION: Large right pneumothorax with mild tension. Clear left lung. Report called to Dr. Brown in the emergency department. Jose Antonio Chavez MD Assessment and Plan Assessment and Plan This is a 31-year-old female without any comorbidities presented with spontaneous pneumothorax Spontaneous pneumothorax-status post pigtail catheter placement, chest x-ray personally reviewed after insertion, showed resolution of pneumothorax and tension. Consult pulmonary, continue pain control with oral and intravenous narcotics as needed. Advised regarding tobacco cessation. Tobacco abuse - counselled, NicoDerm patch Marijuana use-counseled Leukocytosis - likely stress-induced secondary to neutrophil demargination vs hemoconcentration. Afebrile. No obvious source of infection. Monitor for now, recheck CBC tomorrow DVT prophylaxis: Low risk, SCDs. Physician Certification 2 Midnight Certification Type: Admission for Inpatient Services Order for Inpatient Services The services are ordered in accordance with Medicare regulations or non- Medicare payer requirements, as applicable. In the case of services not specified as inpatient-only, they are appropriately provided as inpatient services in accordance with the 2-midnight benchmark. Estimated LOS (days): 2 days is the estimated time the patient will need to remain in the hospital, assuming treatment plan goals are met and no additional complications. Post-Hospital Plan: Home Spenser Whalen MD Oct 08, 2016 09:58
[2016-10-08] MEDS: NICOTINE 21 MG/24 HR PATCH TD SCH (11:04)
--- NOTE | 2016-10-08 13:18 | RADRPT ---
EXAM DATE/TIME: 10/08/2016 12:03 [facility] COMPARISON: CHEST SINGLE AP, October 08, 2016, 2:47. CHEST PA & LAT, October 08, 2016, 0:23. INDICATIONS : Evaluate pneumonthorax MEDICAL HISTORY : None. SURGICAL HISTORY : None. ENCOUNTER: Subsequent ACUITY: 2 days PAIN SCORE: 6/10 LOCATION: Right chest FINDINGS: There is a right chest tube in place. There is a tiny right apical pneumothorax with 3 mm of separati on. There is linear atelectasis in the right lung base. The left lung is clear and well-aerated. The heart size is within normal limits. There are no pleural effusions. Hilar structures are within nakul l limits. The bony structures are grossly intact. CONCLUSION: 1. Right chest tube in place with tiny right apical pneumothorax. Evelio Pérez MD on October 08, 2016 at 13:15 Board Certified Radiologist. This report was verified electronically.
[2016-10-08] MEDS: MORPHINE SULFATE 4 MG/ML INJ IV PUSH PRN ×2 (13:23→21:59)
[2016-10-08 17:00] LABS: BETA HCG QUANT LESS THAN 1 MIU/ML (0-5)
[2016-10-08] MEDS ORDERED: IOHEXOL 350 MG/ML 10 ML VIAL (for RAD DIAG) IV ONE (17:33)
--- NOTE | 2016-10-08 17:50 | RADRPT ---
EXAM DATE/TIME: 10/08/2016 17:31 [facility] COMPARISON: CHEST PA & LAT, October 08, 2016, 12:03. CHEST SINGLE AP, October 08, 2016, 2:47. CHEST PA & LAT, J anuary 2016, 0:23. INDICATIONS : Right pneumothorax follow up. IV CONTRAST: 70 cc Omnipaque 350 (iohexol) IV RADIATION DOSE: 3.34 CTDIvol (mGy) MEDICAL HISTORY : Cardiovascular disease. Gastroesophageal reflux disease. SURGICAL HISTORY : None. ENCOUNTER: Subsequent ACUITY: 1 day PAIN SCALE: 3/10 LOCATION: Right chest TECHNIQUE: Volumetric scanning of the chest was performed. Using automated exposure control and adjustment of t he mA and/or kV according to patient size, radiation dose was kept as low as reasonably achievable to obtain optimal diagnostic quality images. FINDINGS: LUNGS: There is no consolidation or pneumothorax. No concerning pulmonary nodule is visualized. PLEURA: A right-sided chest tube has been placed coiling posteriorly without evidence of residual pneumothora x .There is no pleural thickening or pleural effusion. MEDIASTINUM: The heart and great vessels demonstrate no acute abnormality. There is no mediastinal or hilar lymph adenopathy. AXILLAE: Within normal limits. No lymphadenopathy. SKELETAL: Within normal limits for patient age. MISCELLANEOUS: The visualized upper abdominal organs demonstrate no acute abnormality. CONCLUSION: A right-sided chest tube has been placed coiling posteriorly without evidence of residual pneumothora x. Dimitris Syed MD on October 08, 2016 at 17:47 Board Certified Radiologist. This report was verified electronically.
[2016-10-08] MEDS: REMOVE OLD NICODERM (NICOTINE) PATCH TD SCH (21:00)
[2016-10-09] VITALS (8 sets, daily range): BP systolic 83–141; BP diastolic 40–78; PULSE 58–102; RESP 16–22; TEMP 95.3–97.7; O2SAT 95–97
[2016-10-09] MEDS: MORPHINE SULFATE 4 MG/ML INJ IV PUSH PRN ×3 (02:29→10:01)
[2016-10-09 08:44] LABS: BASOPHIL % 0.4 % (0.0-2.0); EOSINOPHIL # 0.9 TH/MM3 (0-0.4); EOSINOPHIL % 8.5 % (0.0-4.0); HEMATOCRIT 34.3 % (35.0-46.0); HEMO FLAGS DIFF FINAL; LYMPH % 28.1 % (9.0-44.0); MEAN CELL VOLUME 89.6 FL (80.0-100.0); MEAN CORPUSCULAR HEMOGLOBIN 29.6 PG (27.0-34.0); MONO % 7.2 % (0.0-8.0); NEUT % 55.8 % (16.0-70.0); PLATELET COUNT 283 TH/MM3 (150-450); RED BLOOD COUNT 3.82 MIL/MM3 (4.00-5.30); RED CELL DISTRIBUTION WIDTH 12.8 % (11.6-17.2); WHITE BLOOD COUNT 10.8 TH/MM3 (4.0-11.0)
[2016-10-09 08:53] LABS: BICARBONATE 29.3 MEQ/L (21.0-32.0); POTASSIUM 3.5 MEQ/L (3.5-5.1)
[2016-10-09] MEDS: NICOTINE 21 MG/24 HR PATCH TD SCH (10:00)
[2016-10-09] MEDS: SODIUM CHLORIDE 0.9% FLUSH 5 ML FLUSH FLUSH SCH ×2 (10:05→20:58)
[2016-10-09] MEDS: ACETAMINOPHEN/HYDROcodone 325 MG/5 MG TAB PO PRN ×3 (12:01→22:52)
[2016-10-09] MEDS: ONDANSETRON HCL 4 MG/2 ML VIAL IV PUSH PRN (12:02)
--- NOTE | 2016-10-09 13:19 | MB ---
cc: Judi CONTRERAS M.D. DATE OF CONSULTATION: 10/09/2016 HISTORY OF PRESENT ILLNESS Ms. Harman is a 31-year-old white female who developed shortness of breath, lightheadedness and some chest pain on the right while driving her car. She got home, thought that she was just having cramps and went to bed. However, the shortness of breath only increased over the course of the day and she came in yesterday with these symptoms and a chest x-ray revealed a very significant right pneumothorax. The only risk factors here are smoking cigarettes daily, one-half to one pack per day for the last 10-15 years and smoking marijuana on a daily basis for several years as well. She had no preceding symptoms, had not been ill in anyway, and she has never had a pneumothorax or specific chest diagnosis in the past. She has never had asthma. She has never been told she had COPD or emphysema. No history of pneumonia. PAST SURGICAL HISTORY section x1. No other significant prior medical history. ALLERGIES None known. MEDICATIONS Regular medications are none. FAMILY HISTORY Family history is negative. There is no family history of specific lung disorder other than her grandmother, and it is not clear what that is, she could have COPD. REVIEW OF SYSTEMS Other than that noted above is negative. PHYSICAL EXAMINATION VITAL SIGNS: Temperature 97 degrees, pulse 70, respirations 16-18 nonlabored, blood pressure 100/60. She has a catheter in her right chest and there is currently no air leak. NECK: No adenopathy in the neck or supraclavicular region. No subcutaneous air. CHEST: The chest is completely clear, equal bilaterally. HEART: No harsh murmur. Regular rhythm. EXTREMITIES: No edema. IMAGING CT of the chest reveals no residual pneumothorax and no other underlying lung disease. In particular no obvious cysts or bullae. DISCUSSION Ms. Harman has had an initial spontaneous pneumothorax. Risk factors include daily marijuana use by inhalation and daily tobacco inhalation. Today we are going to discontinue suction, do a follow-up chest x-ray. If stable tomorrow morning will clamp the tube and if several hours later there is no recurrent pneumothorax the tube can be removed. I have explained to Ms. Harman that this is an event that could certainly be related to her tobacco and marijuana inhalation and that should be discontinued. It is also possible that it is simply a spontaneous event in which case there is about a 30% chance of recurrence. Now that she is aware of symptoms if these recur post discharge she is to return directly to the emergency room. I will reevaluate her films tomorrow and will decide on chest tube removal. R. MD KIRSTIN Escobedo/PARISH /12:52 PM /1:00 PM
--- NOTE | 2016-10-09 17:09 | HHI.PR ---
Subjective Remarks Follow for pneumothorax, nausea and vomiting Patient not short of breath, pain on deep inspiration, chest tube insertion site. Was nauseated and started vomiting yesterday, also this morning after morphine was given. Afebrile. Objective Vitals Vital Signs Date Time Temp Pulse Resp B/P Pulse Ox O2 Delivery O2 Flow Rate FiO2 10/09/16 12:00 95.3 77 22 141/68 96 10/09/16 09:34 58 10/09/16 08:00 97.1 60 16 87/50 95 10/09/16 04:26 97.0 72 20 106/58 97 10/09/16 00:11 97.2 102 18 103/67 97 10/08/16 20:35 97.0 68 16 93/55 95 I/O 10/08/16 10/08/16 10/08/16 10/09/16 10/09/16 10/09/16 07:00 15:00 23:00 07:00 15:00 23:00 Intake Total 240 ml 480 ml Output Total 0 ml Balance 240 ml 480 ml Intake Oral 240 ml 480 ml Output Chest Tube Drainage Total 0 ml # Voids 1 2 Result Diagram: 10/09/16 0750 10/09/16 0750 Objective Remarks Not in distress, well-nourished, looks stated age PERRL, pink conjunctiva without injection, anicteric Nose without bleeding, airway patent, oropharynx clear Supple neck, no masses or thyromegaly, trachea midline Normal rate and regular rhythm, no murmurs gallops or rubs appreciated. Clear to auscultation and symmetric bilaterally, normal respiratory effort. Chest tube inserted right hemithorax. Normal bowel sounds, soft, non-tender, nondistended, no guarding. Extremities without clubbing, cyanosis, or edema. No rash of generalized distribution. Skin is warm and dry. AAO x3, no cranial nerve deficits, moves all 4 extremities, no focal neurologic deficits Normal mood, appropriate affect A/P Assessment and Plan This is a 31-year-old female without any comorbidities presented with spontaneous pneumothorax Spontaneous pneumothorax-status post pigtail catheter placement, chest x-ray personally reviewed after insertion, showed resolution of pneumothorax and tension. Pulmonary following, off suction today, clamping tomorrow. Repeat chest x-ray showed resolution of pneumothorax. Tobacco abuse - counselled, NicoDerm patch Marijuana use-counseled Leukocytosis - likely stress-induced secondary to neutrophil demargination vs hemoconcentration. Afebrile. No obvious source of infection. Monitor for now, resolved. Nausea and vomiting-likely secondary to morphine, supportive management with Zofran. Mild hypotension-start IVF. Recheck BMP tomorrow. DVT prophylaxis: Low risk, SCDs. Spenser Whalen MD Oct 09, 2016 17:09
[2016-10-09] MEDS: SODIUM CHLOR 0.9% 1000 ML INJ 1,000 ML IV SCH (18:24)
--- NOTE | 2016-10-09 18:50 | RADRPT ---
EXAM DATE/TIME: 10/09/2016 17:53 [facility] COMPARISON: CHEST SINGLE AP, October 08, 2016, 2:47. INDICATIONS : Evaluate pneumothorax MEDICAL HISTORY : None. SURGICAL HISTORY : None. ENCOUNTER: Subsequent ACUITY: 2 days PAIN SCORE: 0/10 LOCATION: Right chest FINDINGS: A single view of the chest demonstrates the lungs to be symmetrically aerated without evidence of mas s, infiltrate or effusion. Right-sided chest tube with small right lateral pneumothorax measuring 6 mm. The cardiomediastinal contours are unremarkable. Osseous structures are intact. CONCLUSION: Small right-sided pneumothorax. Naresh Bird MD on October 09, 2016 at 18:48 Board Certified Radiologist. This report was verified electronically.
[2016-10-09] MEDS: REMOVE OLD NICODERM (NICOTINE) PATCH TD SCH (20:58)
[2016-10-10] VITALS (12 sets, daily range): BP systolic 89–114; BP diastolic 50–71; PULSE 57–89; RESP 15–20; TEMP 96.7–98.1; O2SAT 96–99
[2016-10-10] MEDS: SODIUM CHLOR 0.9% 1000 ML INJ 1,000 ML IV SCH ×2 (05:04→17:31)
[2016-10-10 07:48] LABS: BICARBONATE 27.7 MEQ/L (21.0-32.0); POTASSIUM 3.9 MEQ/L (3.5-5.1)
[2016-10-10] MEDS: NICOTINE 21 MG/24 HR PATCH TD SCH (08:18)
[2016-10-10] MEDS: SODIUM CHLORIDE 0.9% FLUSH 5 ML FLUSH FLUSH SCH ×2 (08:20→21:00)
--- NOTE | 2016-10-10 10:35 | RADRPT ---
EXAM DATE/TIME: 10/10/2016 09:02 [facility] COMPARISON: CHEST SINGLE AP, October 09, 2016, 17:53. INDICATIONS : Evaluate status of pneumothorax. MEDICAL HISTORY : Cardiovascular disease. SURGICAL HISTORY : None. ENCOUNTER: Subsequent ACUITY: 3 days PAIN SCORE: 0/10 LOCATION: chest FINDINGS: Right-sided chest tube no longer in place. Right sided pneumothorax is seen. It measures a maximum of 1.9 cm on inspiration and 2.2 cm on expiration at the right lung apex. It measured 1.9 cm at the rig ht lung apex on the prior study of 10/09/2016. The lungs are clear. Cardiomediastinal silhouette within normal limits. No evidence of pleural effusion. CONCLUSION: Right pneumothorax again seen and unchanged. Chest tube no longer present. Fuad Rojo MD on October 10, 2016 at 10:31 Board Certified Radiologist. This report was verified electronically.
[2016-10-10] MEDS: ACETAMINOPHEN/HYDROcodone 325 MG/5 MG TAB PO PRN ×3 (11:05→22:47)
[2016-10-10] MEDS ORDERED: fentaNYL CITRATE 250 MCG/5 ML AMP ONE (16:11)
--- NOTE | 2016-10-10 16:11 | RADRPT ---
EXAM DATE/TIME: 10/10/2016 15:32 [facility] COMPARISON: CHEST INSPIRATION & EXPIRATION, October 10, 2016, 9:02. INDICATIONS : Pneumothorax. MEDICAL HISTORY : None. SURGICAL HISTORY : None. ENCOUNTER: Initial ACUITY: 1 day PAIN SCORE: 9/10 LOCATION: Right chest. FINDINGS: The cardiac silhouette is normal in transverse diameter. There is an enlarging right pneumothorax wit h now 3 cm of separation extending laterally along the chest wall. A chest tube is to be placed. Ther e is no evidence of pneumonia. No pleural effusions are identified. The cardiac silhouette is normal in transverse diameter. CONCLUSION: 1. Enlarging right pneumothorax. Chest tube is to be placed Robb Veloz MD on October 10, 2016 at 16:08 Board Certified Radiologist. This report was verified electronically.
--- NOTE | 2016-10-10 17:00 | PD.RAD ---
Post Procedure Progress Note Pre Procedure Diagnosis: (1) Pneumothorax, right Post Procedure Diagnosis: (1) Pneumothorax, right Procedure Date: Oct 10, 2016 Supervising Radiologist: Robb Veloz Proceduralist/Assist: Jone Melchor, RT(R), Joanne Hartmann RT(R)() Anesthesia: Analgesia Plan of Activity Patient to Unit: Nursing Unit Patient Condition: Good See PACS Report for procedural detail/treatment Drainage Procedure Procedure 1 Imaging Guidance: Fluoroscopy Side: Right Procedure Type: Chest Tube Non-Tunneled Procedure: Placement Drainage: Suction Robb Veloz MD Oct 10, 2016 16:59
--- NOTE | 2016-10-10 17:22 | HHI.PR ---
Subjective Remarks Follow-up for shortness of breath Patient's chest tube was allegedly pulled last night, repeat x-ray today showed minimal pneumothorax right apex. Not short of breath, no chest pain. Objective Vitals Vital Signs Date Time Temp Pulse Resp B/P Pulse Ox O2 Delivery O2 Flow Rate FiO2 10/10/16 16:12 97.6 68 20 101/55 97 10/10/16 12:00 97.0 57 20 104/71 98 10/10/16 08:42 96.7 60 18 103/55 98 10/10/16 04:00 97.2 77 18 100/54 96 10/10/16 00:00 97.3 81 18 100/52 96 10/09/16 20:00 97.7 69 18 127/78 96 10/09/16 17:50 85/46 I/O 10/09/16 10/09/16 10/09/16 10/10/16 10/10/16 10/10/16 07:00 15:00 23:00 07:00 15:00 23:00 Intake Total 480 ml 480 ml 480 ml 1368 ml 1208 ml 579 ml Output Total 0 ml 0 ml Balance 480 ml 480 ml 480 ml 1368 ml 1208 ml 579 ml Intake Oral 480 ml 480 ml 480 ml 360 ml 240 ml IV Total 1008 ml 968 ml 579 ml Output Chest Tube Drainage Total 0 ml 0 ml # Voids 2 2 3 2 1 # Bowel Movements 0 Result Diagram: 10/09/16 0750 10/10/16 0644 Objective Remarks Not in distress, well-nourished, looks stated age PERRL, pink conjunctiva without injection, anicteric Nose without bleeding, airway patent, oropharynx clear Supple neck, no masses or thyromegaly, trachea midline Normal rate and regular rhythm, no murmurs gallops or rubs appreciated. Decreased breath sounds right apex. Normal bowel sounds, soft, non-tender, nondistended, no guarding. Extremities without clubbing, cyanosis, or edema. No rash of generalized distribution. Skin is warm and dry. AAO x3, no cranial nerve deficits, moves all 4 extremities, no focal neurologic deficits Normal mood, appropriate affect A/P Assessment and Plan This is a 31-year-old female without any comorbidities presented with spontaneous pneumothorax Spontaneous pneumothorax-status post pigtail catheter placement, patient's pigtail catheter however was accidentally removed last night. Chest x-ray today showed minimal pneumothorax right apex. Pulmonary still following, plan is to repeat chest x-ray tomorrow, if stable, may possibly go home. Tobacco abuse-counseled, continue nicotine patch. Marijuana use-counseled Leukocytosis - likely stress-induced secondary to neutrophil demargination vs hemoconcentration. Afebrile. No obvious source of infection. Monitor for now, resolved. Nausea and vomiting-likely secondary to morphine, supportive management with Zofran. Resolved. Mild hypotension- continue fluids for now. DVT prophylaxis: Low risk, SCDs. Spenser Whalen MD Oct 10, 2016 17:22
[2016-10-10] MEDS: ONDANSETRON HCL 4 MG/2 ML VIAL IV PUSH PRN (17:30)
[2016-10-10] MEDS: MORPHINE SULFATE 4 MG/ML INJ IV PUSH PRN (17:30)
--- NOTE | 2016-10-10 17:39 | RADRPT ---
EXAM DATE/TIME: 10/10/2016 12:35 [facility] COMPARISON: No previous studies available for comparison. INDICATIONS : Patient is in need of a right sided chest tube due to spontaneous pneumothorax. MEDICAL HISTORY : History of anxiety. SURGICAL HISTORY : History of . ENCOUNTER: Initial ACUITY: 3 days PAIN SCORE: 7/10 LOCATION: Right chest FLUORO TIME: 1.0 minutes SEDATION TIME: MEDICATION(S): 1.) 150 mcg fentanyl (Sublimaze) IV DEVICE(S): 1.) 10 Pashto non-locking catheter Chari PROCEDURE : 1. Fluoroscopically guided chest tube placement. 2. Conscious sedation with continuous EKG and oximetry monitoring. The risks, benefits and alternatives to the procedure were explained and verbal and written consent w as obtained. The site was prepped in sterile fashion. Full sterile technique was used, including ca p, mask, sterile gloves and gown and a large sterile sheet. Hand hygiene and 2% chlorhexidine and/or betadine/alcohol prep was utilized per protocol for cutaneous antisepsis. The skin and subcutaneous tissues were infiltrated with local anesthetic solution. With fluoroscopic guidance the chest was punctured between the first and second interspace and the pr escribed catheter was placed in the lung apex. Wall suction was applied. Post procedure images demon strate satisfactory position of the tube. The catheter was sutured in place and a Percu-Stay was james lied. Conscious sedation was performed with the prescribed dosages and duration as above. The patient mario ated the procedure well and there were no complications. EKG and oximetry remained stable throughout the procedure. The patient was sent to post anesthesia recovery in stable condition. CONCLUSION: Uncomplicated chest tube placement as above. Robb Veloz MD on October 10, 2016 at 17:37 Board Certified Radiologist. This report was verified electronically.
--- NOTE | 2016-10-10 17:53 | RADRPT ---
EXAM DATE/TIME: 10/10/2016 17:22 [facility] COMPARISON: CHEST INSPIRATION & EXPIRATION, October 10, 2016, 15:32. INDICATIONS : Eval lungs post chest tube. MEDICAL HISTORY : Right pneumothorax. SURGICAL HISTORY : Chest tube. ENCOUNTER: Initial ACUITY: 1 day PAIN SCORE: 10/10 LOCATION: Right FINDINGS: Expiratory AP view of the chest. Right-sided pigtail chest catheter now in place at the apex. Pneumot horax is no longer seen. Lungs are clear. CONCLUSION: Right-sided chest tube now in place. No evidence of pneumothorax. Fuad Rojo MD on October 10, 2016 at 17:50 Board Certified Radiologist. This report was verified electronically.
[2016-10-10] MEDS: REMOVE OLD NICODERM (NICOTINE) PATCH TD SCH (21:00)
[2016-10-11] VITALS: BP 111/59; PULSE 65; RESP 16; TEMP 98; O2SAT 98
[2016-10-11] MEDS: MORPHINE SULFATE 4 MG/ML INJ IV PUSH PRN ×2 (00:54→08:28)
[2016-10-11 04:00] VITALS: BP 89/53; PULSE 59; RESP 18; TEMP 96.4; O2SAT 96
[2016-10-11] MEDS: SODIUM CHLOR 0.9% 1000 ML INJ 1,000 ML IV SCH ×2 (05:41→11:44)
[2016-10-11] MEDS: ACETAMINOPHEN/HYDROcodone 325 MG/5 MG TAB PO PRN ×3 (06:40→15:31)
[2016-10-11 07:40] VITALS: BP 89/49; PULSE 55; RESP 18; TEMP 96.9; O2SAT 97
--- NOTE | 2016-10-11 08:17 | RADRPT ---
EXAM DATE/TIME: 10/11/2016 06:32 [facility] COMPARISON: CHEST EXPIRATION ONLY, October 10, 2016, 17:22. INDICATIONS : Evaluate right pneumothorax and chest tube MEDICAL HISTORY : Right pneumothorax SURGICAL HISTORY : Chest tube ENCOUNTER: Subsequent ACUITY: 2 days PAIN SCORE: 10/10 LOCATION: Right chest FINDINGS: There is no pneumothorax with small bore chest tube in the right apex. The left lung is clear. The heart and pulmonary vascularity are normal. CONCLUSION: There is no pneumothorax. Chencho Gamez MD FACR on October 11, 2016 at 7:25 Board Certified Radiologist. This report was verified electronically.
[2016-10-11] MEDS: SODIUM CHLORIDE 0.9% FLUSH 5 ML FLUSH FLUSH SCH ×2 (08:27→21:00)
[2016-10-11] MEDS: NICOTINE 21 MG/24 HR PATCH TD SCH (08:27)
[2016-10-11 11:20] VITALS: BP 96/51; PULSE 61; RESP 19; TEMP 96.1; O2SAT 97
--- NOTE | 2016-10-11 12:53 | RADRPT ---
EXAM DATE/TIME: 10/11/2016 11:45 [facility] COMPARISON: CHEST EXPIRATION ONLY, October 11, 2016, 6:32. INDICATIONS : Evaluate right pneumothorax. MEDICAL HISTORY : Right pneumothorax. SURGICAL HISTORY : Right chest tube. ENCOUNTER: Initial ACUITY: 1 day PAIN SCORE: 4/10 LOCATION: Right chest FINDINGS: A single frontal expiratory view of the chest was performed. The lungs are symmetrically aerated and clear. No evidence of pneumothorax. Mediastinal structures are in the midline. The cardio-mediastinal contours and bronchopulmonary markings are unremarkable for an expiratory exam . Osseous structures are intact. CONCLUSION: Negative for pneumothorax. Chencho Gamez MD FACR on October 11, 2016 at 12:51 Board Certified Radiologist. This report was verified electronically.
--- NOTE | 2016-10-11 14:54 | RADRPT ---
EXAM DATE/TIME: 10/11/2016 14:46 [facility] COMPARISON: CHEST SINGLE AP, October 09, 2016, 17:53. INDICATIONS : Post chest tube removal. MEDICAL HISTORY : Pneumothorax. SURGICAL HISTORY : Chest tube placement. ENCOUNTER: Subsequent ACUITY: 4 - 6 days PAIN SCORE: 10/10 LOCATION: Right chest FINDINGS: A single view of the chest demonstrates the lungs to be symmetrically aerated without evidence of mas s, infiltrate or effusion. The cardiomediastinal contours are unremarkable. Osseous structures are intact. CONCLUSION: No acute disease. Chencho Gamez MD FACR on October 11, 2016 at 14:53 Board Certified Radiologist. This report was verified electronically.
[2016-10-11 15:35] VITALS: BP 89/52; PULSE 72; RESP 19; TEMP 96.8; O2SAT 97
--- NOTE | 2016-10-11 15:36 | HHI.PR ---
Subjective Remarks Chest tube reinserted, for repeat x-ray to [facility]. Patient denies any chest pain or shortness of breath. Objective Vitals Vital Signs Date Time Temp Pulse Resp B/P Pulse Ox O2 Delivery O2 Flow Rate FiO2 10/11/16 11:20 96.1 61 19 96/51 97 10/11/16 07:40 96.9 55 18 89/49 97 10/11/16 04:00 96.4 59 18 89/53 96 10/11/16 00:00 98.0 65 16 111/59 98 10/10/16 20:00 98.1 58 16 103/52 99 10/10/16 19:30 89 16 89/54 10/10/16 19:00 68 15 92/53 10/10/16 18:15 68 18 89/54 97 10/10/16 17:40 67 18 89/50 98 10/10/16 17:15 67 20 89/50 10/10/16 17:00 97.9 60 20 114/58 97 10/10/16 16:12 97.6 68 20 101/55 97 I/O 10/10/16 10/10/16 10/10/16 10/11/16 10/11/16 10/11/16 06:59 14:59 22:59 06:59 14:59 22:59 Intake Total 1368 ml 1208 ml 1279 ml 480 ml 1488 ml Output Total 0 ml 600 ml 0 ml Balance 1368 ml 1208 ml 679 ml 480 ml 1488 ml Intake Oral 360 ml 240 ml 700 ml 480 ml 480 ml IV Total 1008 ml 968 ml 579 ml 1008 ml Output Urine Total 600 ml Chest Tube Drainage Total 0 ml 0 ml # Voids 2 1 4 3 7 # Bowel Movements 0 Result Diagram: 10/09/16 0750 10/10/16 0644 Objective Remarks Not in distress, well-nourished, looks stated age PERRL, pink conjunctiva without injection, anicteric Nose without bleeding, airway patent, oropharynx clear Supple neck, no masses or thyromegaly, trachea midline Normal rate and regular rhythm, no murmurs gallops or rubs appreciated. Right apex Breath sounds better. Normal bowel sounds, soft, non-tender, nondistended, no guarding. Extremities without clubbing, cyanosis, or edema. No rash of generalized distribution. Skin is warm and dry. AAO x3, no cranial nerve deficits, moves all 4 extremities, no focal neurologic deficits Normal mood, appropriate affect A/P Assessment and Plan This is a 31-year-old female without any comorbidities presented with spontaneous pneumothorax Spontaneous pneumothorax-status post pigtail catheter placement, patient's pigtail catheter however was accidentally removed, reinserted. Follow-up repeat chest x-ray today at 11:30 no pneumothorax. Pulmonary still following, discharge home once cleared by pulmonary. Tobacco abuse-counseled, continue nicotine patch. Marijuana use-counseled Leukocytosis - likely stress-induced secondary to neutrophil demargination vs hemoconcentration. Afebrile. No obvious source of infection. Monitor for now, resolved. Nausea and vomiting-likely secondary to morphine, supportive management with Zofran. Resolved. Mild hypotension-status post IVF DVT prophylaxis: Low risk, SCDs. No pneumothorax, possible discharge today. Spenser Whalen MD Oct 11, 2016 15:36
--- NOTE | 2016-10-11 15:37 | HHI.DS ---
Discharge Summary Admission Date Oct 08, 2016 at 02:56 Discharge Date: Oct 12, 2016 Admitting Diagnosis right pneumothorax (1) Pneumothorax, right ICD Code: J93.9 Diagnosis: Principal Procedures Pigtail insertion for pneumothorax Brief History - From Admission This is a 31-year-old female with no comorbidities other than she is a chronic smoker and marijuana user, who presented to the hospital with sudden right sided chest pain associated with severe shortness of breath which started with coughing earlier during the day. She denies any productive phlegm, fever, chills, nausea, vomiting or sore throat. At emergency department, she was found to have right sided pneumothorax with mild tension, a pigtail chest tube was inserted which resolved the pneumothorax. Presently, she only complains of mild pain at insertion site but otherwise no other complaints. CBC/BMP: 10/09/16 0750 10/10/16 0644 Significant Findings Laboratory Tests Test 10/08/16 10/09/16 10/10/16 16:03 07:50 06:44 Apohi-1-Zlveloctndr 57 mg/dL (100 - 190) Red Blood Count 3.82 MIL/MM3 (4.00-5.30) Hemoglobin 11.3 GM/DL (11.6-15.3) Hematocrit 34.3 % (35.0-46.0) Eosinophils (%) (Auto) 8.5 % (0.0-4.0) Eosinophils # (Auto) 0.9 TH/MM3 (0-0.4) Calcium Level 8.2 MG/DL (8.5-10.1) Imaging Last Impressions Chest X-Ray 10/12/16 0000 Signed Impressions: Service Date/Time: Wednesday, October 12, 2016 08:11 - CONCLUSION: No acute disease. Right-sided chest tube has been removed. No pneumothorax. Naresh Bird MD Tunnelled Chest Tube Removal 10/11/16 0000 Signed Impressions: Service Date/Time: Tuesday, October 11, 2016 00:00 - CONCLUSION: Uncomplicated chest tube removal. Mane Stein MD Chest Tube Insertion 10/10/16 0000 Signed Impressions: Service Date/Time: October 12:35 - CONCLUSION: Uncomplicated chest tube placement as above. Robb Veloz MD Chest CT 10/08/16 0000 Signed Impressions: Service Date/Time: Saturday, October 08, 2016 17:31 - CONCLUSION: A right- sided chest tube has been placed coiling posteriorly without evidence of residual pneumothorax. Dimitris Syed MD PE at Discharge Not in distress, well-nourished, looks stated age PERRL, pink conjunctiva without injection, anicteric Nose without bleeding, airway patent, oropharynx clear Supple neck, no masses or thyromegaly, trachea midline Normal rate and regular rhythm, no murmurs gallops or rubs appreciated. Right apex Breath sounds better. Normal bowel sounds, soft, non-tender, nondistended, no guarding. Extremities without clubbing, cyanosis, or edema. No rash of generalized distribution. Skin is warm and dry. AAO x3, no cranial nerve deficits, moves all 4 extremities, no focal neurologic deficits Normal mood, appropriate affect Hospital Course This is a 31-year-old female without any comorbidities presented with spontaneous pneumothorax. Pulmonary consulted. Patient status post pigtail catheter placement, patient's pigtail catheter however was accidentally removed , reinserted. Follow-up repeat chest x-ray the day prior to discharge did not show any pneumothorax. On the day of discharge, repeat chest x-ray also showed resolution of pneumothorax. Patient cleared by pulmonary for discharge. Patient counseled regarding smoking. Follow-up with pulmonary in 2 weeks. Hospital stay was unremarkable. Pt Condition on Discharge: Good Discharge Disposition: Discharge Home Discharge Time: > 30 minutes Discharge Instructions New Medications: Hydrocodone-Acetaminophen (Hydrocodone-Acetaminophen) 5-325 mg Tab 1 TAB PO Q4H PRN pain 3-8 #20 TAB Spenser Whalen MD Oct 11, 2016 15:37
--- NOTE | 2016-10-11 16:50 | RADRPT ---
EXAM DATE/TIME: 10/11/2016 00:00 [facility] COMPARISON: No previous studies available for comparison. INDICATIONS : PNEUMOTHORAX DEVICE(S): 1.) Vaseline occlusive dressing PROCEDURE : Chest tube removal. Using aseptic technique the previously placed chest tube was easily removed in one piece and Vaseline gauze and sterile dressing was applied. Chest radiograph is to be obtained. CONCLUSION: Uncomplicated chest tube removal. Mane Stein MD on October 11, 2016 at 16:48 Board Certified Radiologist. This report was verified electronically.
[2016-10-11 20:00] VITALS: BP 104/71; PULSE 72; RESP 20; TEMP 96.8; O2SAT 97
[2016-10-11] MEDS: REMOVE OLD NICODERM (NICOTINE) PATCH TD SCH (21:00)
[2016-10-12] VITALS: BP_SYST 104; BP_SYST 96; BP_DIAS 55; BP_DIAS 71; PULSE 72; PULSE 77; RESP 20; RESP 22; TEMP 96.8; TEMP 98.8; O2SAT 96
[2016-10-12 04:00] VITALS: BP_SYST 110; BP_DIAS 70; BP_DIAS 80; PULSE 72; PULSE 80; RESP 16; TEMP 98.4; TEMP 98.8; O2SAT 95; O2SAT 96
[2016-10-12] MEDS: SODIUM CHLOR 0.9% 1000 ML INJ 1,000 ML IV SCH ×2 (05:42→15:53)
--- NOTE | 2016-10-12 08:32 | RADRPT ---
EXAM DATE/TIME: 10/12/2016 08:11 [facility] COMPARISON: No previous studies available for comparison. INDICATIONS : Follow-up pneumothorax. MEDICAL HISTORY : Pneumothorax. SURGICAL HISTORY : Chest tube placement. ENCOUNTER: Subsequent ACUITY: 4 - 6 days PAIN SCORE: 10/10 LOCATION: Bilateral chest FINDINGS: A single frontal expiratory view of the chest was performed. The lungs are symmetrically aerated and clear. No evidence of pneumothorax. Mediastinal structures are in the midline. The cardio-mediastinal contours and bronchopulmonary markings are unremarkable for an expiratory exam . Osseous structures are intact. CONCLUSION: No acute disease. Right-sided chest tube has been removed. No pneumothorax. Naresh Bird MD on October 12, 2016 at 8:30 Board Certified Radiologist. This report was verified electronically.
[2016-10-12] MEDS: SODIUM CHLORIDE 0.9% FLUSH 5 ML FLUSH FLUSH SCH (08:38)
[2016-10-12] MEDS: NICOTINE 21 MG/24 HR PATCH TD SCH (08:38)
[2016-10-12 08:44] VITALS: BP 112/56; PULSE 62; RESP 18; TEMP 96.9; O2SAT 95
[2016-10-12] MEDS ORDERED: HYDR-3516 PO (10:02)
--- NOTE | 2016-10-12 10:04 | HHI.PR ---
Subjective Remarks Follow-up for pneumothorax No chest pain, not short of breath, no cough. Afebrile. Discussed with Dr. almazan Objective Vitals Vital Signs Date Time Temp Pulse Resp B/P Pulse Ox O2 Delivery O2 Flow Rate FiO2 10/12/16 08:44 96.9 62 18 112/56 95 10/12/16 04:00 98.8 80 16 110/70 96 10/12/16 04:00 98.4 72 16 110/80 95 10/12/16 00:00 96.8 72 20 104/71 96 10/11/16 20:00 96.8 72 20 104/71 97 10/11/16 15:35 96.8 72 19 89/52 97 10/11/16 11:20 96.1 61 19 96/51 97 I/O 10/11/16 10/11/16 10/11/16 10/12/16 10/12/16 10/12/16 07:00 15:00 23:00 07:00 15:00 23:00 Intake Total 480 ml 1488 ml Output Total 0 ml Balance 480 ml 1488 ml Intake Oral 480 ml 480 ml IV Total 1008 ml Chest Tube Drainage Total 0 ml # Voids 3 7 # Bowel Movements 0 Result Diagram: 10/09/16 0750 10/10/16 0644 Objective Remarks Not in distress, well-nourished, looks stated age PERRL, pink conjunctiva without injection, anicteric Nose without bleeding, airway patent, oropharynx clear Supple neck, no masses or thyromegaly, trachea midline Normal rate and regular rhythm, no murmurs gallops or rubs appreciated. Clear breath sounds, symmetric. Normal bowel sounds, soft, non-tender, nondistended, no guarding. Extremities without clubbing, cyanosis, or edema. No rash of generalized distribution. Skin is warm and dry. AAO x3, no cranial nerve deficits, moves all 4 extremities, no focal neurologic deficits Normal mood, appropriate affect A/P Assessment and Plan This is a 31-year-old female without any comorbidities presented with spontaneous pneumothorax Spontaneous pneumothorax-status post pigtail catheter placement, patient's pigtail catheter however was accidentally removed, reinserted and removed yesterday. Chest x-ray from yesterday no pneumothorax, chest x-ray today personally reviewed, no pneumothorax. Discussed with Dr. Nunez from pulmonary, cleared for discharge today. Counseled regarding smoking cessation. Tobacco abuse-counseled, continue nicotine patch. Marijuana use-counseled Leukocytosis - likely stress-induced secondary to neutrophil demargination vs hemoconcentration. Afebrile. No obvious source of infection. Monitor for now, resolved. Nausea and vomiting-likely secondary to morphine, supportive management with Zofran. Resolved. Mild hypotension-status post IVF DVT prophylaxis: Low risk, SCDs. Spenser Whalen MD Oct 12, 2016 10:04
[2016-10-12 12:24] VITALS: BP 86/45; PULSE 69; RESP 18; TEMP 97.5; O2SAT 97
[2016-10-12] MEDS: ACETAMINOPHEN/HYDROcodone 325 MG/5 MG TAB PO PRN (13:38)
[2016-10-12 16:54] VITALS: BP 116/56; PULSE 76; RESP 18; TEMP 97.9; O2SAT 97
== END 2016-10-12 17:38 | disposition home or self-care (01) | DRG 201 ==
LOC: NEPB 23:37 → INTOOBSV 10-08 02:56 → OBSVTOIN 10-08 02:56 → NEDA 10-08 02:56 → N05B 10-08 05:14
PROVIDERS: ADMIT Hospitalist; ATTEND Hospitalist
PROC: 0W9930Z Drainage of Right Pleural Cavity with Drainage Device, Percutaneous Approach (ICD-10-PCS; principal; 2016-10-08)
PROC: 0W9930Z Drainage of Right Pleural Cavity with Drainage Device, Percutaneous Approach (ICD-10-PCS; 2016-10-10)
PROC: 0WP8X0Z Removal of Drainage Device from Chest Wall, External Approach (ICD-10-PCS; 2016-10-11)
DX: J93.83 Other pneumothorax (principal); I95.9 Hypotension, unspecified; D72.829 Elevated white blood cell count, unspecified; F41.9 Anxiety disorder, unspecified; K21.9 Gastro-esophageal reflux disease without esophagitis; F17.210 Nicotine dependence, cigarettes, uncomplicated; F12.90 Cannabis use, unspecified, uncomplicated; R11.2 Nausea with vomiting, unspecified
CPT/HCPCS: 32551; 71010; 71020; 71260; 80048; 82103; 84702; 84703; 85025; 85610; 85730; 87804; 96361; 96374; 96375; C1729; C1769; J2060; J2270; J2405; J3010; J7030; Q9967

== ENCOUNTER 2017-03-16 21:18 | Emergency (ER) | payer OTHER ==
[~2017-03-16] VITALS: Ht 172.7 cm; Wt 78.0 kg
[~2017-03-16 21:18] MED LIST changes: -CLIN1CAP6 PO; +HYDR-3516 PO
[2017-03-16 21:22] VITALS: BP 114/60; PULSE 72; RESP 16; TEMP 98.2; O2SAT 98
[2017-03-16] MEDS ORDERED: ALBU6.7H INH (23:06)
[2017-03-16] MEDS ORDERED: PRED-503 PO (23:06)
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
== END 2017-03-16 23:35 | disposition home or self-care (01) ==
LOC: NEPD 21:18
DX: J20.9 Acute bronchitis, unspecified (principal); J45.909 Unspecified asthma, uncomplicated; R11.0 Nausea; R19.7 Diarrhea, unspecified; K21.9 Gastro-esophageal reflux disease without esophagitis; F41.9 Anxiety disorder, unspecified; F32.9 Major depressive disorder, single episode, unspecified; F17.200 Nicotine dependence, unspecified, uncomplicated; Z79.899 Other long term (current) drug therapy
CPT/HCPCS: 99284

== ENCOUNTER 2017-05-04 01:06 | Emergency (ER) | payer OTHER ==
[~2017-05-04] VITALS: Ht 157.5 cm; Wt 55.0 kg
[~2017-05-04 01:06] MED LIST changes: +ALBU6.7H INH; +PRED-503 PO
[2017-05-04 01:11] VITALS: BP 112/91; PULSE 102; RESP 18; TEMP 98.1; O2SAT 99
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
[2017-05-04] MEDS ORDERED: KETOROLAC TROMETHAMINE 60 MG/2 ML (IM) VIAL IM ONE (01:30)
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
[2017-05-04] MEDS ORDERED: MOBI15TA PO (02:19)
[2017-05-04] MEDS ORDERED: ULTR50TA5 PO (02:19)
[2017-05-04] MEDS ORDERED: AMOX500C PO (02:19)
[2017-05-04] MEDS ORDERED: ACETAMINOPHEN/HYDROcodone 325 MG/5 MG TAB PO ONE (02:30)
[2017-05-05] MEDS ORDERED: BACT800T5 PO (17:49)
== END 2017-05-04 03:02 | disposition home or self-care (01) ==
LOC: NEPE 01:06
DX: S02.80XA Fracture of other specified skull and facial bones, unspecified side, initial encounter for closed fracture (principal); S02.40FA Zygomatic fracture, left side, initial encounter for closed fracture; S02.401A Maxillary fracture, unspecified side, initial encounter for closed fracture; S20.211A Contusion of right front wall of thorax, initial encounter; S01.81XA Laceration without foreign body of other part of head, initial encounter; Y09 Assault by unspecified means
CPT/HCPCS: 12011; 70450; 70486; 71101; 96372; 99285; J1885

== ENCOUNTER 2017-05-05 16:57 | Emergency (ER) | payer OTHER ==
[~2017-05-05] VITALS: Ht 160 cm; Wt 58.0 kg
[~2017-05-05 16:57] MED LIST changes: -ALBU6.7H INH; +AMOX500C PO; -HYDR-3516 PO; +MOBI15TA PO; -PRED-503 PO; +ULTR50TA5 PO
[2017-05-05 16:59] VITALS: BP 108/76; PULSE 75; RESP 15; TEMP 98.2; O2SAT 98
[2017-05-05] MEDS ORDERED: BACT800T5 PO (17:49)
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
== END 2017-05-05 18:07 | disposition home or self-care (01) ==
LOC: NEPK 16:57
DX: L03.317 Cellulitis of buttock (principal)
CPT/HCPCS: 99283

== ENCOUNTER 2017-09-07 20:26 | Emergency (ER) | payer OTHER ==
[~2017-09-07] VITALS: Ht 157.5 cm; Wt 52.0 kg
[~2017-09-07 20:26] MED LIST changes: +BACT800T5 PO; +TRAM50 PO; -ULTR50TA5 PO
[2017-09-07 20:30] VITALS: BP 102/60; PULSE 86; RESP 20; TEMP 97.7; O2SAT 98
--- NOTE | 2017-09-07 21:48 | PD ---
HPI Chief Complaint: Cold / Flu Symptoms Time Seen by Provider: 20:36 Travel History International Travel<30 days: No Contact w/Intl Traveler<30days: No Traveled to known affect area: No History of Present Illness HPI 32-year-old white female presents to emergency Department with complaints of the flu. She states that she's been sick now since Friday. She has had subjective fever and chills, headache, ear pain, sore throat, cough, pleuritic chest wall pain, myalgias, arthralgias and general malaise. She denies any nausea vomiting. No abdominal pain or diarrhea. No dysuria or frequency. No rashes or lesions. She does smoke cigarettes. Symptoms are moderate. No alleviating factors. Worse with coughing. History Past Medical Histgory Narrative Medical Pneumothorax Tetanus Vaccination: < 5 Years LMP: 08/22/2017 Hx Cancer: No Hx Chemotherapy: No Hx Radiation Therapy: No Past Surgical History Narrative Surgical Chest tube Social History Alcohol Use: Yes (occaisonal) Tobacco Use: Yes (1/2 PPD) Allergies-Medications (Allergen,Severity, Reaction): Coded Allergies: No Known Allergies (Verified Adverse Reaction, Unknown, 09/07/17) Reported Meds & Prescriptions Reported Meds & Active Scripts Active No Active Prescriptions or Reported Medications Review of Systems Except as stated in HPI: all other systems reviewed are Neg Physical Exam Narrative GENERAL: Well-developed, well-nourished in no acute distress. Nontoxic appearing. HEAD: Normocephalic, atraumatic. EYES: Pupils equal round and reactive. Extraocular motions intact. No scleral icterus. No injection or drainage. ENT: TMs clear without erythema. The external auditory canals clear. Nose: clear . Posterior pharynx is pink and moist. No tonsillar edema or exudate. Uvula midline. Airway patent. NECK: Trachea midline.Supple, nontender, moves head freely. No central bony tenderness or spasm. CARDIOVASCULAR: Regular rate and rhythm without murmurs, gallops, or rubs. RESPIRATORY: Clear to auscultation. Breath sounds equal bilaterally. No wheezes , rales, or rhonchi. GASTROINTESTINAL: Abdomen soft, non-tender, nondistended. No hepato-splenomegaly , or palpable masses. No guarding. EXTREMITIES: No clubbing, cyanosis, or edema. No joint tenderness, effusion, or edema noted. BACK: Nontender without deformity or crepitance. No flank tenderness. Data Data Last Documented VS Vital Signs Date Time Temp Pulse Resp B/P (MAP) Pulse Ox O2 Delivery O2 Flow Rate FiO2 09/07/17 20:30 97.7 86 20 102/60 (74) 98 Room Air MDM Medical Screen Exam Complete: Yes Emergency Medical Condition: No Differential Diagnosis MDM: High Differential diagnoses: Pneumonia, bronchitis, URI, asthma, RAD, legionnaire's disease, SARS, ARDS, influenza, bronchiolitis, RSV,PE,CHF Narrative Course A medical screening exam was performed: At the time of evaluation the presenting medical condition was determined not to be of an emergent nature. The patient was given the option of receiving additional care, but declined. Patient was given options for additional community resources from which to obtain care. The Patient Has Been advised to seek medical attention for their presenting complaint. The patient has been advised to return to the ER at any time if an emergent condition develops. Primary Impression: Influenza-like illness Patient Instructions: General Instructions Departure Forms: Tests/Procedures, Work Release Special Instructions: No work 5 days. Additional Instructions: Rest. Increase fluids. Tylenol and Advil. Robitussin-DM. Followup with your Dr. in one week. Return to the ER for any problems. Med/Other Pt SpecificInfo: No Meds Exist/No RX given Scripts No Active Prescriptions or Reported Meds Disposition: 01 DISCHARGE HOME Condition: Stable Negro Saldana Sep 07, 2017 21:48
== END 2017-09-07 22:40 | disposition home or self-care (01) ==
LOC: NEPD 20:26
DX: J11.1 Influenza due to unidentified influenza virus with other respiratory manifestations (principal); R07.89 Other chest pain; F17.210 Nicotine dependence, cigarettes, uncomplicated
CPT/HCPCS: 99282

== ENCOUNTER 2018-03-03 01:07 | Emergency (ER) | payer SELFPAY ==
[~2018-03-03] VITALS: Ht 157.5 cm; Wt 55.0 kg
[2018-03-03 01:34] VITALS: BP 114/65; PULSE 98; RESP 22; TEMP 98.7; O2SAT 98
[2018-03-03] MEDS ORDERED: LORazepam 2 MG/ML VIAL IV PUSH ONE (01:45)
[2018-03-03] MEDS ORDERED: SODIUM CHLOR 0.9% 1000 ML INJ 1,000 ML IV ONE (01:45)
--- NOTE | 2018-03-03 02:02 | RADRPT ---
EXAM DATE: 03/03/2018 1:45 AM EDT AGE/SEX: 33 years / Female INDICATIONS: Short of breath. CLINICAL DATA: This is the patient's initial encounter. Patient reports that signs and symptoms have been present for 1 day and indicates a pain score of Nonresponsive. MEDICAL/SURGICAL HISTORY: Non-responsive. Non-responsive. COMPARISON: [facility] [place], CHEST SINGLE AP, 10/11/2016. . FINDINGS: A single AP view of the chest demonstrates the lungs to be symmetrically aerated without evidence of mass, infiltrate or effusion. The cardiomediastinal contours are unremarkable. Osseous structures a re intact. CONCLUSION: No acute cardiopulmonary process. Electronically signed by: Jose Antonio Suero MD 03/03/2018 2:01 AM EDT
[2018-03-03 02:20] VITALS: RESP 18; O2SAT 100
[2018-03-03 02:49] LABS: AUTOMATED NEUTROPHIL # 6.2 TH/MM3 (1.8-7.7); BASOPHIL # 0.1 TH/MM3 (0-0.2); BASOPHIL % 0.6 % (0.0-2.0); EOSINOPHIL # 0.2 TH/MM3 (0-0.4); EOSINOPHIL % 2.1 % (0.0-4.0); HEMATOCRIT 36.4 % (35.0-46.0); HEMOGLOBIN 12.4 GM/DL (11.6-15.3); LYMPH % 20.4 % (9.0-44.0); MEAN CELL VOLUME 88.2 FL (80.0-100.0); MEAN CORPUSCULAR HEMOGLOBIN 30.1 PG (27.0-34.0); MEAN CORPUSCULAR HGB CONC 34.2 % (32.0-36.0); MEAN PLATELET VOLUME 7.7 FL (7.0-11.0); MONOCYTE # 1.2 TH/MM3 (0-0.9); NEUT % 64.9 % (16.0-70.0); PLATELET COUNT 278 TH/MM3 (150-450); RED BLOOD COUNT 4.13 MIL/MM3 (4.00-5.30); RED CELL DISTRIBUTION WIDTH 12.8 % (11.6-17.2); WHITE BLOOD COUNT 9.6 TH/MM3 (4.0-11.0)
[2018-03-03 03:05] LABS: BICARBONATE 21.8 MEQ/L (21.0-32.0); BLOOD UREA NITROGEN 14 MG/DL (7-18); CALCIUM 8.5 MG/DL (8.5-10.1); CHLORIDE 109 MEQ/L (98-107); CREATININE 0.84 MG/DL (0.50-1.00); GLOMERULAR FILTRATION RATE 77 ML/MIN (>89); GLUCOSE,RANDOM 80 MG/DL (74-106); SODIUM (NA) 142 MEQ/L (136-145)
[2018-03-03 03:16] LABS: ALKALINE PHOSPHATASE 61 U/L (45-117); ALT (GPT) 15 U/L (10-53); AST (GOT) 14 U/L (15-37); TOTAL PROTEIN 7.1 GM/DL (6.4-8.2)
[2018-03-03 03:48] VITALS: BP 114/56; PULSE 78; RESP 18; O2SAT 100
[2018-03-03] MEDS ORDERED: VIST25CA PO (04:23)
[2018-03-03] MEDS ORDERED: NAPR-810 PO (04:23)
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
[2018-03-03 06:36] LABS: TROPONIN I LESS THAN 0.02 NG/ML (0.02-0.05)
--- NOTE | 2018-03-03 13:35 | EKG ---
Date Performed: 03/03/2018 Time Performed: 01:13:38 PTAGE: 33 years EKG: Marked baseline artifact Sinus rhythm WITH SHORT AR INTERVAL BORDERLINE ECG Compared to prior electrocardiogram, Rate has increased. The p resent EKG has marked artifact and it is difficult to completely compare. DOCTOR: Andre Copeland Interpretating Date/Time 03/03/2018 13:33:33
== END 2018-03-03 07:09 | disposition home or self-care (01) ==
LOC: NEPC 01:07
DX: R07.81 Pleurodynia (principal); F41.9 Anxiety disorder, unspecified; R06.02 Shortness of breath; R05 Cough; K21.9 Gastro-esophageal reflux disease without esophagitis; F32.9 Major depressive disorder, single episode, unspecified; F17.210 Nicotine dependence, cigarettes, uncomplicated
CPT/HCPCS: 71045; 80053; 82550; 83690; 83880; 84484; 84703; 85025; 85379; 93005; 96361; 96374; 99285; J2060; J7030